=== PATIENT | female | born 1940 | race Caucasian/White ===

== ENCOUNTER 2020-11-04 20:06 | Emergency (ER) | payer OTHER, MEDICAID, SELFPAY ==
[~2020-11-04] VITALS: Ht 167.6 cm; Wt 70.3 kg
[~2020-11-04 20:06] MED LIST: AZIT250T3 PO; CAPS1ADH5 TP; CHOL500040 PO; LORA-476 PO; METO25TA PO; MIRABULK PO; MIRT-92 PO; SENN-73 PO; TRAM50TA1 PO; TRAZ-343 PO
[2020-11-04 20:10] VITALS: BP 157/70
--- NOTE | 2020-11-04 20:19 | NUR ---
Pt biba for 9/10 left shoulder pain x21 years, worsened today. Denies injury or fall. States she did have surgery on left shoulder 21 yr ago. A/Ox4. States she is normally able to walk w/steady gait. Noted w/BLE +2 pitting edema. Hx of HTN, hyperlipidemia, anxiety, and depression.
[2020-11-04] MEDS ORDERED: MORPHINE SULFATE 4 MG/ML SYR IM ONE (20:50)
--- NOTE | 2020-11-04 21:08 | NUR ---
xray at bedside
--- NOTE | 2020-11-04 21:36 | NUR ---
Spoke with Martha at [facility]. States they do not have transportation available to take pt back to SNF. Also spoke with Harinder Patel, pt son. He states he is not able to transport pt back to SNF. Will continue to monitor pt until transportation is available.
[2020-11-04] MEDS ORDERED: ACET-8386 PO (21:46)
[2020-11-04] MEDS ORDERED: IBUP-2213 PO (21:46)
--- NOTE | 2020-11-04 22:16 | NUR ---
Pt resting in bed, breathing even and unlabored. A/Ox4, VSS. Pt states pain is relieved by pain shot. Needs met, will continue to monitor.
--- NOTE | 2020-11-04 22:51 | NUR ---
Taxi ETA 2300. Pt is A/Ox4 with steady gait. Spoke with Martha at [facility] and instructed her on pt d/c information and taxi ETA. Pt aware of transportation plan. Patient discharged with v/s stable. Written and verbal after care instructions given and explained. Patient alert, oriented and verbalized understanding of instructions. Ambulatory with steady gait. All questions addressed prior to discharge. ID band removed. Patient advised to follow up with PMD. Rx of Ibuprofen and Motrin given. Patient educated on indication of medication including possible reaction and side effects. Opportunity to ask questions provided and answered. Pending taxi pickup, ETA 2300.
[2020-11-04 22:54] VITALS: BP 167/68
--- NOTE | 2020-11-04 23:15 | NUR ---
CAB ARRIVED FOR PT.
== END 2020-11-04 23:38 | disposition home or self-care (01) ==
LOC: MED 20:06
DX: G89.29 Other chronic pain (principal); M25.512 Pain in left shoulder; I10 Essential (primary) hypertension; F41.9 Anxiety disorder, unspecified; F32.9 Major depressive disorder, single episode, unspecified; Z98.890 Other specified postprocedural states; Z79.899 Other long term (current) drug therapy
CPT/HCPCS: 73030; 96372; 99283; J2270

== ENCOUNTER 2021-04-24 01:55 | Emergency (ER) | payer OTHER, MEDICAID, SELFPAY ==
[~2021-04-24] VITALS: Ht 170.2 cm; Wt 81.2 kg
[~2021-04-24 01:55] MED LIST changes: +ACET-8386 PO; +IBUP-2213 PO
[2021-04-24 02:03] VITALS: BP 125/68
--- NOTE | 2021-04-24 02:04 | NUR ---
To ED bed 08
--- NOTE | 2021-04-24 02:05 | NUR ---
Dr. Andrea with dayna for MSE
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
[2021-04-24] MEDS ORDERED: ACETAMINOPHEN EXTRA STRENGTH 500 MG TAB PO ONE (02:30)
[2021-04-24 03:09] LABS: BASOPHILS % (AUTO) 0.2 % (0.0-2.0); EOSINOPHILS % (AUTO) 0.4 % (0.0-4.0); HEMATOCRIT 40.2 % (36-48); HEMOGLOBIN 13.3 g/dL (12.0-16.0); LYMPHOCYTES # (AUTO) 0.9 K/uL (2.5-16.5); LYMPHOCYTES % (AUTO) 9.8 % (20.5-51.1); MEAN CORPUSCULAR HEMOGLOBIN 28 pg (27-31); MEAN CORPUSCULAR HGB CONC 33 g/dL (33-37); MEAN CORPUSCULAR VOLUME 84.6 fL (80-94); MONOCYTES # (AUTO) 0.6 K/uL (0.8-1.0); MONOCYTES % (AUTO) 6.3 % (1.7-9.3); PLATELET COUNT (AUTO) 162 K/uL (140-450); RED BLOOD CELL COUNT(AUTO) 4.75 MIL/uL (4.20-5.40); RED CELL DISTRIBUTION WIDTH 14.6 % (11.6-13.7); WHITE BLOOD COUNT (AUTO) 9.6 K/uL (4.8-10.8)
[2021-04-24 03:31] LABS: NEUTROPHILS % (AUTO) 83.3 % (42.2-75.2)
[2021-04-24 03:50] LABS: ALBUMIN 3.7 g/dL (3.4-5.0); ANION GAP 8.6 (8-16); ASPARTATE AMINOTRANSFERASE 21 U/L (15-37); CARBON DIOXIDE 28.4 mmol/L (21-32); CHLORIDE 106 mmol/L (98-107); CREATININE 0.8 mg/dL (0.6-1.3); GLUCOSE 112 mg/dL (74-106); SODIUM SERUM 139 mmol/L (136-145); TOTAL BILIRUBIN 0.4 mg/dL (0.0-1.0); UREA NITROGEN, BLOOD 27 mg/dL (7-18)
--- NOTE | 2021-04-24 05:00 | NUR ---
Patient appears to be resting comfortably in bed. Vital Signs within normal limits. Respirations even and unlabored.
--- NOTE | 2021-04-24 07:19 | NUR ---
GIVEN REPORT TO WILLIAM MCKEON. TRANSFER OF CARE AT THIS TIME.
--- NOTE | 2021-04-24 07:22 | NUR ---
REPORT RECEIVED FROM WILLIAM WALLACE. TRANSFER OF CARE RECEIVED
--- NOTE | 2021-04-24 09:06 | NUR ---
jenn arreola called for pt transport and spoke with regi. ETA is 45 min from now
--- NOTE | 2021-04-24 09:10 | NUR ---
called bryson trammell to give report on pt. no answer at this time
[2021-04-24 10:51] VITALS: BP 183/76
--- NOTE | 2021-04-24 10:51 | NUR ---
Patient discharged with v/s stable. Written and verbal after care instructions given and explained. Patient verbalized understanding. Ambulatory with to [facility]. All questions addressed prior to discharge. Advised to follow up with PMD.
== END 2021-04-24 10:15 ==
LOC: MED 01:55
DX: R19.7 Diarrhea, unspecified (principal); R10.9 Unspecified abdominal pain; I10 Essential (primary) hypertension; Z79.899 Other long term (current) drug therapy
CPT/HCPCS: 36415; 74018; 80053; 85025; 99284; Q0092

== ENCOUNTER 2021-07-30 11:06 | Emergency (ER) | payer OTHER, MEDICAID, SELFPAY ==
[~2021-07-30] VITALS: Ht 157.5 cm; Wt 77.1 kg
[2021-07-30 11:07] VITALS: BP 184/70
--- NOTE | 2021-07-30 11:07 | NUR ---
amr placed pt in bed 9 at this time
[2021-07-30 11:14] VITALS: BP 184/70
--- NOTE | 2021-07-30 11:20 | NUR ---
SPOKE WITH [facility], PER BRAIDED BAND ASSEMBLER NURSE "IS TOO BUSY TO GIVE REPORT" AND UNABLE TO TELL US WHY THEY SENT PATIENT WITH NO COMLAINTS.
--- NOTE | 2021-07-30 11:24 | NUR ---
called bryson trammell at this time for report around 1107. spoke with pedro diaz, rn states she does not know the mental status of the patient before she left, but was informed that the son (lamberto) called to transport because yesterday pt was acting differently from normal baseline per pt roomate. ermd and charge notified at this time
--- NOTE | 2021-07-30 11:27 | NUR ---
DR. STEVE AT PT BEDSIDE FOR FURTHER EVALUATION.
--- NOTE | 2021-07-30 11:32 | NUR ---
PADDING MACHINE OPERATOR AT PT BEDSIDE.
--- NOTE | 2021-07-30 11:41 | NUR ---
AMMONIA DISTILLER AT PT BEDSIDE.
[2021-07-30 12:22] LABS: BASOPHILS % (AUTO) 0.4 % (0.0-2.0); EOSINOPHILS # (AUTO) 0.1 K/uL (0-0.4); EOSINOPHILS % (AUTO) 1.5 % (0.0-4.0); HEMATOCRIT 39.8 % (36-48); HEMOGLOBIN 13.2 g/dL (12.0-16.0); LYMPHOCYTES # (AUTO) 1.7 K/uL (2.5-16.5); LYMPHOCYTES % (AUTO) 26.1 % (20.5-51.1); MEAN CORPUSCULAR HEMOGLOBIN 28 pg (27-31); MEAN CORPUSCULAR HGB CONC 33 g/dL (33-37); MEAN CORPUSCULAR VOLUME 85.3 fL (80-94); MONOCYTES # (AUTO) 0.6 K/uL (0.8-1.0); MONOCYTES % (AUTO) 8.9 % (1.7-9.3); NEUTROPHILS # (AUTO) 4.1 K/uL (1.8-7.7); NEUTROPHILS % (AUTO) 63.1 % (42.2-75.2); PLATELET COUNT (AUTO) 170 K/uL (140-450); RED BLOOD CELL COUNT(AUTO) 4.66 MIL/uL (4.20-5.40); RED CELL DISTRIBUTION WIDTH 14.8 % (11.6-13.7); WHITE BLOOD COUNT (AUTO) 6.5 K/uL (4.8-10.8)
[2021-07-30 12:27] LABS: ALBUMIN 3.9 g/dL (3.4-5.0); ANION GAP 14.2 (8-16); ASPARTATE AMINOTRANSFERASE 25 U/L (15-37); CARBON DIOXIDE 27.4 mmol/L (21-32); CHLORIDE 104 mmol/L (98-107); CREATININE 0.9 mg/dL (0.6-1.3); GLUCOSE 89 mg/dL (74-106); POTASSIUM 4.6 mmol/L (3.5-5.1); SODIUM SERUM 141 mmol/L (136-145); TOTAL BILIRUBIN 0.4 mg/dL (0.0-1.0); UREA NITROGEN, BLOOD 26 mg/dL (7-18)
[2021-07-30 13:05] LABS: APPEARANCE,URINE CLEAR (CLEAR); BILIRUBIN,URINE NEGATIVE (NEGATIVE); BLOOD, URINE 3+ (NEGATIVE); COLOR,URINE YELLOW (YELLOW); LEUKOCYTE ESTERASE ,URINE TRACE (NEGATIVE); NITRITE, URINE NEGATIVE (NEGATIVE); UGLUCOSE NEGATIVE (NEGATIVE)
--- NOTE | 2021-07-30 13:11 | NUR ---
PT RESTING IN BED, VSS, WILL CONTINUE TO MONITOR.
[2021-07-30 13:14] LABS: WBC,URINE 0-5 /HPF (0-5)
[2021-07-30 13:40] LABS: APPEARANCE,URINE CLEAR (CLEAR); BILIRUBIN,URINE NEGATIVE (NEGATIVE); BLOOD, URINE TRACE-L (NEGATIVE); LEUKOCYTE ESTERASE ,URINE NEGATIVE (NEGATIVE); NITRITE, URINE NEGATIVE (NEGATIVE); UGLUCOSE NEGATIVE (NEGATIVE)
[2021-07-30] MEDS ORDERED: NITR100C7 PO (14:05)
--- NOTE | 2021-07-30 14:11 | NUR ---
CALLED [facility] MART[facility] AND SPOKE TO THE DESK AND WOODEN FURNITURE POLISHER GOES HOME AT 2PM. NO OTHER TRANSPORTATION SERVICES AVAILABLE. CALLED AND SPOKE TO SON LUIS E AND HE IS NOT ABLE TO PICK HER UP. HE WAS UPDATED ON HER CARE AND DX.
[2021-07-30 14:15] LABS: COLOR,URINE YELLOW (YELLOW); RBC,URINE 0 /HPF (0-5); WBC,URINE 0-5 /HPF (0-5)
--- NOTE | 2021-07-30 14:15 | NUR ---
[facility]XI ARRANGED FOR PATIENT. ETA 5-45 MINS.
--- NOTE | 2021-07-30 15:55 | NUR ---
CALLED AND FOLLOW UP WITH [facility], NO AVAILABLE HIDE BUFFER. CAB SERVICE ASKED FOR US TO CALL BACK IN 15 MINS.
[2021-07-30 16:09] VITALS: BP 147/60
--- NOTE | 2021-07-30 16:09 | NUR ---
Patient discharged with v/s stable. Written and verbal after care instructions given and explained. Patient verbalized understanding. Ambulatory with steady gait. All questions addressed prior to discharge. Advised to follow up with PMD. PT GIVEN TRAVEL VOUCHER FOR TAXI RIDE HOME. EMT WALKED PT TO TAXI. PT HAS STEADY GAIT, CALM DEMEANOR, AND UNLABORED BREATHING W/ EQUAL CHEST RISE/FALL.
== END 2021-07-30 16:09 | disposition home or self-care (01) ==
LOC: MED 11:06
DX: N39.0 Urinary tract infection, site not specified (principal); R41.0 Disorientation, unspecified; F03.90 Unspecified dementia, unspecified severity, without behavioral disturbance, psychotic disturbance, mood disturbance, and anxiety; I10 Essential (primary) hypertension; Z79.899 Other long term (current) drug therapy
CPT/HCPCS: 36415; 71045; 80053; 81001; 84484; 85025; 87086; 93005; 99285; Q0092

== ENCOUNTER 2021-10-02 21:46 | Emergency (ER) | payer OTHER, MEDICAID ==
[~2021-10-02] VITALS: Ht 167.6 cm; Wt 68.0 kg
[~2021-10-02 21:46] MED LIST changes: +NITR100C7 PO
--- NOTE | 2021-10-02 21:54 | NUR ---
JENELLE ESCOBAR TAKEN TO BED #5
[2021-10-02 21:55] VITALS: BP 157/78
--- NOTE | 2021-10-02 22:15 | NUR ---
COVID-19 swabs collected and sent to lab.
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
[2021-10-02] MEDS ORDERED: lovaza GT/PO (22:17)
[2021-10-02] MEDS ORDERED: CRAN425C8 PO (22:17)
[2021-10-02] MEDS ORDERED: CARB15DR61 OT (22:17)
[2021-10-02] MEDS ORDERED: ACET-2619 PO (22:17)
[2021-10-02] MEDS ORDERED: MELA1TAB32 PO (22:17)
[2021-10-02] MEDS ORDERED: TROL85CR TP (22:17)
--- NOTE | 2021-10-02 22:31 | NUR ---
Dr. Parrish at bedside to exam patient.
--- NOTE | 2021-10-02 23:12 | NUR ---
Blood for labwork drawn from right arm per patch finisher. Patient tolerated well.
--- NOTE | 2021-10-02 23:24 | NUR ---
Assisted patient to restroom
[2021-10-02 23:26] LABS: APPEARANCE,URINE CLEAR (CLEAR); BILIRUBIN,URINE NEGATIVE (NEGATIVE); BLOOD, URINE TRACE-I (NEGATIVE); COLOR,URINE YELLOW (YELLOW); LEUKOCYTE ESTERASE ,URINE 1+ (NEGATIVE); NITRITE, URINE NEGATIVE (NEGATIVE); UGLUCOSE NEGATIVE (NEGATIVE)
[2021-10-02 23:28] LABS: BASOPHILS % (AUTO) 0.9 % (0.0-2.0); EOSINOPHILS # (AUTO) 0.1 K/uL (0-0.4); EOSINOPHILS % (AUTO) 2.4 % (0.0-4.0); HEMATOCRIT 37.3 % (36-48); HEMOGLOBIN 12.5 g/dL (12.0-16.0); LYMPHOCYTES # (AUTO) 1.9 K/uL (2.5-16.5); LYMPHOCYTES % (AUTO) 34.2 % (20.5-51.1); MEAN CORPUSCULAR HEMOGLOBIN 28 pg (27-31); MEAN CORPUSCULAR HGB CONC 34 g/dL (33-37); MEAN CORPUSCULAR VOLUME 83.9 fL (80-94); MONOCYTES # (AUTO) 0.4 K/uL (0.8-1.0); MONOCYTES % (AUTO) 7.8 % (1.7-9.3); NEUTROPHILS % (AUTO) 54.7 % (42.2-75.2); PLATELET COUNT (AUTO) 167 K/uL (140-450); RED BLOOD CELL COUNT(AUTO) 4.45 MIL/uL (4.20-5.40); RED CELL DISTRIBUTION WIDTH 14.7 % (11.6-13.7); WHITE BLOOD COUNT (AUTO) 5.5 K/uL (4.8-10.8)
[2021-10-02 23:50] LABS: RBC,URINE 0-5 /HPF (0-5)
[2021-10-03 00:11] LABS: ALBUMIN 3.5 g/dL (3.4-5.0); ANION GAP 13.5 (8-16); ASPARTATE AMINOTRANSFERASE 17 U/L (15-37); CARBON DIOXIDE 27.2 mmol/L (21-32); CHLORIDE 99 mmol/L (98-107); CREATININE 0.8 mg/dL (0.6-1.3); GLUCOSE 95 mg/dL (74-106); POTASSIUM 3.7 mmol/L (3.5-5.1); SODIUM SERUM 136 mmol/L (136-145); TOTAL BILIRUBIN 0.4 mg/dL (0.0-1.0); UREA NITROGEN, BLOOD 19 mg/dL (7-18)
[2021-10-03] MEDS ORDERED: cephALEXin 500 MG CAP PO ONE (00:15)
[2021-10-03] MEDS ORDERED: CEPH-588 PO (00:44)
[2021-10-03 00:57] VITALS: BP 156/71
--- NOTE | 2021-10-03 00:57 | NUR ---
Patient discharged with v/s stable. Written and verbal after care instructions given and explained. Patient alert, oriented and verbalized understanding of instructions. Wheel Chair Assisted with to retirement. All questions addressed prior to discharge. ID band removed. Patient advised to follow up with PMD. Rx of Keflex given. Patient educated on indication of medication including possible reaction and side effects. Opportunity to ask questions provided and answered.
== END 2021-10-03 00:57 | disposition home or self-care (01) ==
LOC: MED 21:46
DX: N39.0 Urinary tract infection, site not specified (principal); Z20.822 Contact with and (suspected) exposure to COVID-19; I10 Essential (primary) hypertension; F03.90 Unspecified dementia, unspecified severity, without behavioral disturbance, psychotic disturbance, mood disturbance, and anxiety; Z79.899 Other long term (current) drug therapy
CPT/HCPCS: 36415; 80053; 81001; 84484; 85025; 87086; 93005; 99284

== ENCOUNTER 2021-12-27 14:00 | Emergency (ER) | payer OTHER, MEDICAID ==
[~2021-12-27] VITALS: Ht 167.6 cm; Wt 65.8 kg
[2021-12-27 14:00] VITALS: BP 154/65
[~2021-12-27 14:00] MED LIST changes: +ACET-2619 PO; -ACET-8386 PO; -AZIT250T3 PO; +CARB15DR61 OT; +CEPH-588 PO; +CRAN425C8 PO; -IBUP-2213 PO; -LORA-476 PO; +MELA1TAB32 PO; -MIRABULK PO; -NITR100C7 PO; -TRAM50TA1 PO; +TROL85CR TP; +lovaza GT/PO
--- NOTE | 2021-12-27 14:11 | NUR ---
PT UNABLE TO PROVIDE URINE AT THIS TIME, CUP OF WATER GIVEN
[2021-12-27] MEDS ORDERED: cephALEXin 500 MG CAP PO ONE (15:50)
[2021-12-27] MEDS ORDERED: CEPH-588 PO (15:51)
[2021-12-27 16:34] VITALS: BP 154/65
[2021-12-27 22:29] LABS: APPEARANCE,URINE CLEAR (CLEAR); BILIRUBIN,URINE NEGATIVE (NEGATIVE); BLOOD, URINE NEGATIVE (NEGATIVE); COLOR,URINE YELLOW (YELLOW); LEUKOCYTE ESTERASE ,URINE 1+ (NEGATIVE); NITRITE, URINE NEGATIVE (NEGATIVE); UGLUCOSE NEGATIVE (NEGATIVE)
[2021-12-27 22:39] LABS: RBC,URINE 0-5 /HPF (0-5); WBC,URINE 0-5 /HPF (0-5)
== END 2021-12-27 16:34 | disposition home or self-care (01) ==
LOC: MED 14:00
DX: N39.0 Urinary tract infection, site not specified (principal); I10 Essential (primary) hypertension; F03.90 Unspecified dementia, unspecified severity, without behavioral disturbance, psychotic disturbance, mood disturbance, and anxiety; Z79.2 Long term (current) use of antibiotics; Z79.899 Other long term (current) drug therapy
CPT/HCPCS: 81001; 87086; 99283

== ENCOUNTER 2022-01-04 01:45 | Inpatient (IN) | payer OTHER, MEDICAID ==
[~2022-01-04] VITALS: Ht 167.6 cm; Wt 70.3 kg
[2022-01-04 01:45] VITALS: BP 143/70
--- NOTE | 2022-01-04 01:46 | NUR ---
BIBA TAKEN TO BED #4
[2022-01-04] MEDS ORDERED: IBUPROFEN 600 MG TAB PO ONE (02:05)
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
--- NOTE | 2022-01-04 02:28 | NUR ---
XRAY AT BEDSIDE
[2022-01-04] MEDS ORDERED: PROPOFOL 200 MG/20 ML VIAL IV ONE (03:00)
--- NOTE | 2022-01-04 03:14 | NUR ---
22G IV CATH PLACED RIGHT AC.
[2022-01-04] MEDS ORDERED: NACL 0.9% 1,000 ML IV ONE (03:30)
--- NOTE | 2022-01-04 04:47 | NUR ---
PT IS RESTING WITH SIDE RAILS UP X2. RESP EVEN AND UNLABORED.
--- NOTE | 2022-01-04 08:17 | NUR ---
Patient will be admitted to care of . Admited to MED SURG. Will go to [id number]. Belongings list completed. Report to WILLIAM AKBAR.
[2022-01-04 10:48] VITALS: BP 154/87
--- NOTE | 2022-01-04 11:35 | NUR ---
PATIENT DISCHARGE , DISCHARGE INSTRUCTION GIVEN, IV AND ID BAND REMOVED. ESCORTED BY W\C WITH NURSE.[id number]
== END 2022-01-04 14:55 | disposition home or self-care (01) | DRG 563 ==
LOC: MED 01:45 → MTU 05:01 → MMU 05:01 → MTU 05:55
PROVIDERS: ADMIT Student in an Organized Health Care Education/Training Program; ATTEND Student in an Organized Health Care Education/Training Program
PROC: 0XJ3XZZ Inspection of Left Shoulder Region, External Approach (ICD-10-PCS; principal; 2022-01-04)
DX: S43.015A Anterior dislocation of left humerus, initial encounter (principal); Z20.822 Contact with and (suspected) exposure to COVID-19; M19.012 Primary osteoarthritis, left shoulder; I10 Essential (primary) hypertension; F03.90 Unspecified dementia, unspecified severity, without behavioral disturbance, psychotic disturbance, mood disturbance, and anxiety; W18.39XA Other fall on same level, initial encounter; Y93.89 Activity, other specified; Y92.128 Other place in nursing home as the place of occurrence of the external cause; Z79.899 Other long term (current) drug therapy; Y99.8 Other external cause status
CPT/HCPCS: 23650; 73020; 73030; 73200; 96360; 99285; G0500; J2704; J7030; Q0092

== ENCOUNTER 2022-02-14 22:36 | Emergency (ER) | payer OTHER, MEDICAID ==
[~2022-02-14] VITALS: Ht 167.6 cm; Wt 63.5 kg
[2022-02-14 22:36] VITALS: BP 147/74
[~2022-02-14 22:36] MED LIST changes: -CAPS1ADH5 TP; -CARB15DR61 OT; -CEPH-588 PO; -TROL85CR TP; -lovaza GT/PO
--- NOTE | 2022-02-14 22:36 | NUR ---
JENELLE FROM [facility] WITH C/O LOWER BACK PAIN 02/27, ALERT, AMBULATORY WITH WALKER
--- NOTE | 2022-02-14 23:00 | NUR ---
PT AMBULATE WITH WALKER TO RESTROOM.
[2022-02-15] MEDS ORDERED: HYDROcodone/APAP 7.5/325 MG 1 TAB PO ONE (01:00)
--- NOTE | 2022-02-15 01:13 | NUR ---
81 YO F BIBA FOR CHRONIC BACK PAIN. PT STATES PAIN 9/10 AND PAIN BECAME SO BAD SHE NEEDED ER . RADIATES TO LUMBAR BACK AREA. PT IS AMBULATORY WITH WALKER. PT IS A POOR HISTORIAN. HAS A HX OF DEPRESSION AND ANXIETY. PT IS A&OX4.
--- NOTE | 2022-02-15 02:54 | NUR ---
PT LEFT TO CT
--- NOTE | 2022-02-15 03:15 | NUR ---
PT BACK FROM CT
--- NOTE | 2022-02-15 03:52 | NUR ---
PROVIDED PT ALESHIA AND JNE
--- NOTE | 2022-02-15 04:36 | NUR ---
Patient appears to be resting comfortably in bed. Vital Signs within normal limits. Respirations even and unlabored.
[2022-02-15] MEDS ORDERED: IBUP-2213 PO (05:56)
[2022-02-15] MEDS ORDERED: ACETAMINOPHEN 325 MG TAB PO ONE (07:25)
[2022-02-15] MEDS ORDERED: ACETAMINOPHEN 325 MG TAB ONE (07:27)
--- NOTE | 2022-02-15 07:29 | NUR ---
pt given tylenol 325 mg per FOR BACK PAIN . PT BEING D/C TO [facility] AT 0800
[2022-02-15 08:03] VITALS: BP 170/74
== END 2022-02-15 08:03 ==
LOC: MED 22:36
DX: S32.020A Wedge compression fracture of second lumbar vertebra, initial encounter for closed fracture (principal); F03.90 Unspecified dementia, unspecified severity, without behavioral disturbance, psychotic disturbance, mood disturbance, and anxiety; I10 Essential (primary) hypertension; X58.XXXA Exposure to other specified factors, initial encounter; Y93.89 Activity, other specified; Y92.89 Other specified places as the place of occurrence of the external cause; Y99.8 Other external cause status
CPT/HCPCS: 72131; 99285

== ENCOUNTER 2022-03-05 00:08 | Emergency (ER) | payer OTHER, MEDICAID ==
[~2022-03-05] VITALS: Ht 167.6 cm; Wt 65.3 kg
[2022-03-05 00:08] VITALS: BP 110/58
[~2022-03-05 00:08] MED LIST changes: +IBUP-2213 PO
--- NOTE | 2022-03-05 00:08 | NUR ---
JENELLE ESCOBAR TAKEN TO BED #4
--- NOTE | 2022-03-05 00:17 | NUR ---
PT PLACED ON MONITOR
[2022-03-05 00:54] LABS: APPEARANCE,URINE CLOUDY (CLEAR); BILIRUBIN,URINE NEGATIVE (NEGATIVE); BLOOD, URINE NEGATIVE (NEGATIVE); COLOR,URINE RED (YELLOW); LEUKOCYTE ESTERASE ,URINE NEGATIVE (NEGATIVE); NITRITE, URINE NEGATIVE (NEGATIVE); UGLUCOSE NEGATIVE (NEGATIVE)
[2022-03-05] MEDS ORDERED: KETOROLAC 60 MG/2 ML VIAL IM ONE (01:55)
--- NOTE | 2022-03-05 02:00 | NUR ---
82 YO F JENELLE FROM [facility] C/O LOW BACK PAIN X 6 HOURS. TOOK TYLENOL WITH NO RELIF NKDA PMH: CHRONIC BACK PAIN, HTN
[2022-03-05] MEDS ORDERED: ACET-8386 PO ×2 (02:44→02:45)
[2022-03-05] MEDS ORDERED: IBUP-2213 PO (02:44)
[2022-03-05 03:25] VITALS: BP 115/60
--- NOTE | 2022-03-05 03:28 | NUR ---
Patient discharged with v/s stable. Written and verbal after care instructions given and explained. Patient alert, oriented and verbalized understanding of instructions. Wheel Chair Assisted with to car. All questions addressed prior to discharge. ID band removed. Patient advised to follow up with PMD. Rx of NORCO 5/325 & IBUPROFEN given. Patient educated on indication of medication including possible reaction and side effects. Opportunity to ask questions provided and answered.
[2022-03-06] MEDS ORDERED: ACET-9527 PO (08:56)
[2022-03-06] MEDS ORDERED: LID5T TP (08:58)
[2022-03-06] MEDS ORDERED: ACET-10509 PO (08:58)
[2022-03-06] MEDS ORDERED: ACET-8386 PO (08:58)
== END 2022-03-05 03:28 | disposition home or self-care (01) ==
LOC: MED 00:08
DX: M54.50 Low back pain, unspecified (principal); I10 Essential (primary) hypertension; F03.90 Unspecified dementia, unspecified severity, without behavioral disturbance, psychotic disturbance, mood disturbance, and anxiety; Z79.899 Other long term (current) drug therapy; Z79.1 Long term (current) use of non-steroidal anti-inflammatories (NSAID)
CPT/HCPCS: 81003; 96372; 99283; J1885

== ENCOUNTER 2022-03-06 06:32 | Emergency (ER) | payer OTHER, MEDICAID ==
[~2022-03-06] VITALS: Ht 165.1 cm; Wt 68.0 kg
[2022-03-06 06:32] VITALS: BP 156/60
[~2022-03-06 06:32] MED LIST changes: +ACET-8386 PO
--- NOTE | 2022-03-06 06:34 | NUR ---
PT BIBA BLS STATUS POST FALL
--- NOTE | 2022-03-06 06:36 | NUR ---
PT TO BED 9 AT THIS TIME
[2022-03-06] MEDS ORDERED: HYDROcodone/APAP 5/325 MG 1 TAB TAB PO ONE (07:40)
--- NOTE | 2022-03-06 07:53 | NUR ---
PT [facility]
[2022-03-06] MEDS ORDERED: ACET-9527 PO (08:56)
[2022-03-06] MEDS ORDERED: ACET-8386 PO (08:58)
[2022-03-06] MEDS ORDERED: LID5T TP (08:58)
[2022-03-06] MEDS ORDERED: ACET-10509 PO (08:58)
[2022-03-06 09:31] VITALS: BP 142/81
--- NOTE | 2022-03-06 09:31 | NUR ---
Patient discharged with v/s stable. Written and verbal after care instructions given and explained. Patient alert, oriented and verbalized understanding of instructions. Ambulatory with steady gait. All questions addressed prior to discharge. ID band removed. Patient advised to follow up with PMD. Rx of ACETAMINOPHEN HYDROCODON LIDODERM given. Patient educated on indication of medication including possible reaction and side effects. Opportunity to ask questions provided and answered.
== END 2022-03-06 09:31 | disposition home or self-care (01) ==
LOC: MED 06:32
DX: S39.012A Strain of muscle, fascia and tendon of lower back, initial encounter (principal); I10 Essential (primary) hypertension; F03.90 Unspecified dementia, unspecified severity, without behavioral disturbance, psychotic disturbance, mood disturbance, and anxiety; X58.XXXA Exposure to other specified factors, initial encounter; Y93.89 Activity, other specified; Y92.89 Other specified places as the place of occurrence of the external cause; Y99.8 Other external cause status
CPT/HCPCS: 72100; 99283

== ENCOUNTER 2022-03-24 19:37 | Inpatient (IN) | payer OTHER, MEDICAID ==
[~2022-03-24] VITALS: Ht 165.1 cm; Wt 71.7 kg
[~2022-03-24 19:37] MED LIST changes: +ACET-10509 PO; +LID5T TP
[2022-03-24 19:40] VITALS: BP 172/78
--- NOTE | 2022-03-24 19:42 | NUR ---
BIBA TAKEN TO BED #8
--- NOTE | 2022-03-24 20:04 | NUR ---
82 Y/O F FROM [facility]. BIBA FOR BILAT LEG SWELLING FROM LOWER THIGH TO FEET + 1 PITTING EDEMA. SINCE THIS MORNING. PT REPORTS DULL CONTNOUS 6/10 PAIN . PT HAS SLIGHT NON ELEVATED RASH D/T SWELLING. PT DENIES N/F/V/D/CHEST PAIN/ COUGH. PT IS AMBULATORY WITH WALKER A&0 X4 . PT HAS NO WOUNDS AND USES THE RESTROOM ON HER OWN. VSS; PATIENT POSITIONED FOR COMFORT; HOB ELEVATED; BEDRAILS UP X2; BED DOWN. ER MD MADE AWARE OF PT STATUS. PMH: HTN, HYPONATREMIA RX: SEE MED REC
--- NOTE | 2022-03-24 20:04 | NUR ---
ERMD EXAMINING PT
[2022-03-24 20:43] LABS: BASOPHILS % (AUTO) 0.3 % (0.0-2.0); EOSINOPHILS # (AUTO) 0.1 K/uL (0-0.4); EOSINOPHILS % (AUTO) 1.2 % (0.0-4.0); HEMATOCRIT 36.9 % (36-48); HEMOGLOBIN 12.1 g/dL (12.0-16.0); LYMPHOCYTES # (AUTO) 2.7 K/uL (2.5-16.5); LYMPHOCYTES % (AUTO) 29.4 % (20.5-51.1); MEAN CORPUSCULAR HEMOGLOBIN 28 pg (27-31); MEAN CORPUSCULAR HGB CONC 33 g/dL (33-37); MEAN CORPUSCULAR VOLUME 85.4 fL (80-94); MONOCYTES # (AUTO) 0.7 K/uL (0.8-1.0); MONOCYTES % (AUTO) 7.8 % (1.7-9.3); NEUTROPHILS # (AUTO) 5.6 K/uL (1.8-7.7); NEUTROPHILS % (AUTO) 61.3 % (42.2-75.2); PLATELET COUNT (AUTO) 205 K/uL (140-450); RED BLOOD CELL COUNT(AUTO) 4.32 MIL/uL (4.20-5.40); RED CELL DISTRIBUTION WIDTH 15.8 % (11.6-13.7); WHITE BLOOD COUNT (AUTO) 9.2 K/uL (4.8-10.8)
--- NOTE | 2022-03-24 20:45 | NUR ---
X-Ray at bedside.
[2022-03-24 20:56] LABS: ALBUMIN 3.2 g/dL (3.4-5.0); ANION GAP 12.8 (8-16); ASPARTATE AMINOTRANSFERASE 16 U/L (15-37); CARBON DIOXIDE 26.5 mmol/L (21-32); CHLORIDE 104 mmol/L (98-107); CREATININE 0.8 mg/dL (0.6-1.3); GLUCOSE 97 mg/dL (74-106); POTASSIUM 4.3 mmol/L (3.5-5.1); SODIUM SERUM 139 mmol/L (136-145); TOTAL BILIRUBIN 0.4 mg/dL (0.0-1.0); UREA NITROGEN, BLOOD 25 mg/dL (7-18)
[2022-03-24] MEDS ORDERED: DILTIAZEM 25 MG/5 ML VIAL IVP ONE (21:40)
[2022-03-24] MEDS ORDERED: FUROSEMIDE 40 MG/4 ML VIAL IVP ONE (21:40)
--- NOTE | 2022-03-24 21:44 | NUR ---
PT AMBULATE TO BATHROOM
--- NOTE | 2022-03-24 22:45 | NUR ---
PT AMBULATE TO BATHROOM
--- NOTE | 2022-03-24 22:51 | NUR ---
PT STATES SHES HUNGRY. PROVIDED PT ALESHIA ANS JUICE . PT SITING AT BEDSIDE EATING
--- NOTE | 2022-03-24 23:14 | NUR ---
COVID SWAB TAKEN TO LAB
--- NOTE | 2022-03-25 00:30 | NUR ---
PT C/O 05/[address] BACK [address]IN. CALLED ADMIT DR FOR PAIN MED. DR GAVE MORPHINE IV PUSH. AMBULATE TO BATHROOM
[2022-03-25] MEDS ORDERED: MORPHINE SULFATE 4 MG/ML SYR IVP PRN (00:50)
--- NOTE | 2022-03-25 01:20 | NUR ---
MORPHINE GIVEN BY WILLIAM ROE. PT FOUND RELIEF WITH MORPHINE. PROVIDED ADDITIONAL PILLOW FOR COMFORT
[2022-03-25] MEDS ORDERED: CALC-1236 PO (03:49)
[2022-03-25] MEDS ORDERED: ATOR10TA PO (04:07)
--- NOTE | 2022-03-25 07:20 | NUR ---
REPORT RECEIVED FROM ISAC MCCLELLAND. ASSUMED CARE AT THIS TIME
--- NOTE | 2022-03-25 07:30 | NUR ---
PT AT REST , LAYING SUPINE POSITION. NO VISIBLE DISTRESS. RESPIRATIONS EVEN AND UNLABORED. PT ON REGISTERED NURSE HH CASE MANAGER. DENIES PAIN AT THIS TIME
[2022-03-25 07:50] LABS: BASOPHILS % (AUTO) 0.2 % (0.0-2.0); EOSINOPHILS # (AUTO) 0.1 K/uL (0-0.4); EOSINOPHILS % (AUTO) 1.3 % (0.0-4.0); HEMATOCRIT 41.4 % (36-48); HEMOGLOBIN 13.4 g/dL (12.0-16.0); LYMPHOCYTES # (AUTO) 2.8 K/uL (2.5-16.5); LYMPHOCYTES % (AUTO) 28.4 % (20.5-51.1); MEAN CORPUSCULAR HEMOGLOBIN 28 pg (27-31); MEAN CORPUSCULAR HGB CONC 32 g/dL (33-37); MEAN CORPUSCULAR VOLUME 86.7 fL (80-94); MONOCYTES # (AUTO) 1.1 K/uL (0.8-1.0); MONOCYTES % (AUTO) 10.9 % (1.7-9.3); NEUTROPHILS # (AUTO) 5.8 K/uL (1.8-7.7); NEUTROPHILS % (AUTO) 59.2 % (42.2-75.2); PLATELET COUNT (AUTO) 206 K/uL (140-450); RED BLOOD CELL COUNT(AUTO) 4.77 MIL/uL (4.20-5.40); RED CELL DISTRIBUTION WIDTH 16.1 % (11.6-13.7); WHITE BLOOD COUNT (AUTO) 9.8 K/uL (4.8-10.8)
--- NOTE | 2022-03-25 07:55 | NUR ---
Patient will be admitted to care of MD CARDONA . Admited to ICU . Will go to room 3. Belongings list completed. Report to MILAN THOMAS. ALL QUESTIONS ANSWERED
[2022-03-25 08:10] VITALS: BP 135/60
--- NOTE | 2022-03-25 08:10 | NUR ---
Recieved report at bedside by ED nurse, SBAR completed. Patient is on gurney on satellite project site monitor. Patient appears comfortable and VS stable.
--- NOTE | 2022-03-25 08:30 | NUR ---
patient Alert and oriented, A fib controlled, Blood pressure normotensive, Pitting edema bilateral lower extremites, VS stable, Admissions history and assessment completed, skin is intact.
--- NOTE | 2022-03-25 09:25 | NUR ---
PATIENT HAS BEEN SCREENED AND CATEGORIZED HIGH NUTRITION RISK. PATIENT WILL BE SEEN WITHIN 1-2 DAYS OF ADMISSION. [address] FENG [address] Addendum: 03/25/22 at [address] CORRECTION PATIENT HAS BEEN SCREENED AND CATEGORIZED MODERATE NUTRITION RISK. PATIENT WILL BE SEEN WITHIN 3-5 DAYS OF ADMISSION. REFERRAL RECEIVED NOT APPLICABLE CONSTANTINO FENG RD
[2022-03-25 09:58] LABS: CARBON DIOXIDE 26.1 mmol/L (21-32); CHLORIDE 102 mmol/L (98-107); CREATININE 0.8 mg/dL (0.6-1.3); GLUCOSE 85 mg/dL (74-106); POTASSIUM 4.1 mmol/L (3.5-5.1); SODIUM SERUM 137 mmol/L (136-145); UREA NITROGEN, BLOOD 21 mg/dL (7-18)
[2022-03-25] MEDS ORDERED: METOPROLOL 25 MG TAB PO SCH ×2 (10:30→21:00)
[2022-03-25] MEDS ORDERED: ONDANSETRON 4 MG/2 ML VIAL IVP PRN (10:35)
[2022-03-25] MEDS ORDERED: ZOLPIDEM 10 MG TAB PO PRN (10:35)
[2022-03-25] MEDS ORDERED: ACETAMINOPHEN 325 MG TAB PO PRN (10:35)
[2022-03-25] MEDS ORDERED: MORPHINE SULFATE 2 MG/ML SYR IVP PRN (10:35)
[2022-03-25] MEDS ORDERED: POTASSIUM CHLORIDE 10 MEQ TABER PO PRN (10:35)
[2022-03-25] MEDS ORDERED: MAG SULF 2000 MG/WATER PREMIX 50 ML IV PRN (11:00)
[2022-03-25 12:04] VITALS: BP 167/71
--- NOTE | 2022-03-25 13:16 | NUR ---
no wounds noted
[2022-03-25] MEDS: ACETAMINOPHEN 325 MG TAB PO PRN (14:59)
[2022-03-25] MEDS: HYDROcodone/APAP 5/325 MG 1 TAB TAB PO PRN (15:25)
[2022-03-25 16:02] VITALS: BP 140/69
--- NOTE | 2022-03-25 17:00 | NUR ---
RECEIVED PATIENT FROM ICU NURSE FOR CONTINUITY OF CARE. PT IS STABLE.
[2022-03-25] MEDS ORDERED: FUROSEMIDE 40 MG/4 ML VIAL IVP SCH (18:15)
--- NOTE | 2022-03-25 18:30 | NUR ---
ALL SCHEDULED MEDS GIVEN. NO DISTRESS NOTED. WILL CONTINUE TO MONITOR.
--- NOTE | 2022-03-25 19:43 | NUR ---
ENDORSED TO ASSURANCE ANALYST NURSE FOR CONTINUITY OF CARE. PT IS STABLE.
--- NOTE | 2022-03-25 19:45 | NUR ---
RECEIVED REPORT FROM DAY SHIFT NURSE FOR CONTINUITY OF CARE. PT AWAKE, ALERT AND ORIENTED X 2. ON ROOM AIR, BREATHING EQUAL AND UNLABORED. NO DISTRESS NOTED. SKIN WARM, DRY AND INTACT. IV ON L HAND G22, SL. NOTCH MACHINE OPERATOR AT BEDSIDE. NO COMPLAINS OF PAIN. ALL PRECAUTION IN PLACE. CALL LIGHT WITHIN REACH.WILL CONTINUE TO MONITOR.
[2022-03-25 20:00] VITALS: BP 150/84
[2022-03-25] MEDS: METOPROLOL 50 MG TAB PO SCH (20:51)
[2022-03-25] MEDS: MIRTAZAPINE 15 MG TAB PO SCH (20:51)
[2022-03-25] MEDS: traZODone 50 MG TAB PO SCH (20:52)
[2022-03-25] MEDS: APIXABAN 2.5 MG TAB PO SCH (21:00)
--- NOTE | 2022-03-25 21:30 | NUR ---
SCHEDULED MEDICATION GIVEN. PT TOLERATED WELL. WILL CONTINUE TO MONITOR.
--- NOTE | 2022-03-25 22:00 | NUR ---
STARTED NEW IV ON R HAND G22.
[2022-03-26] VITALS: BP 132/80
[2022-03-26] MEDS: HYDROcodone/APAP 5/325 MG 1 TAB TAB PO PRN ×3 (00:57→18:01)
--- NOTE | 2022-03-26 01:00 | NUR ---
PT ASLEEP. BREATHING EQUAL AND UNLABORED, NO DISTRESS NOTED. WILL CONTINUE TO MONITOR.
[2022-03-26 04:00] VITALS: BP 145/78
[2022-03-26] MEDS: METOPROLOL 50 MG TAB PO SCH ×3 (04:41→20:46)
--- NOTE | 2022-03-26 05:00 | NUR ---
SCHEDULED MEDICATION GIVEN. PT TOLERATED WELL. WILL CONTINUE TO MONITOR.
--- NOTE | 2022-03-26 06:21 | NUR ---
PT ASLEEP. BREATHING EQUAL AND UNLABORED, NO DISTRESS NOTED. WILL CONTINUE TO MONITOR.
--- NOTE | 2022-03-26 07:05 | NUR ---
RECEIVED REPORT FROM RETAIL EVENT COORDINATOR NURSE FOR CONTINUITY OF CARE. PT SITTING IN CHAIR, AT BEDSIDE. RESPIRATIONS EVEN AND UNLABORED ON RA. NO DISTRESS NOTED. A&O2, FORGETFULL, ABLE TO COMMUNICATE NEEDS. PT ON TELE MONITOR. SKIN IS INTACT, WARM AND DRY TO TOUCH. IV SITE AT RIGHT HAND, G22, SL. CALL LIGHT WITHIN REACH. SAFETY PRECAUTIONS IN PLACE. WILL CONTINUE TO MONITOR.
[2022-03-26 07:25] LABS: ANION GAP 9.4 (8-16); CARBON DIOXIDE 30.7 mmol/L (21-32); CHLORIDE 99 mmol/L (98-107); CREATININE 0.8 mg/dL (0.6-1.3); GLUCOSE 94 mg/dL (74-106); POTASSIUM 4.1 mmol/L (3.5-5.1); SODIUM SERUM 135 mmol/L (136-145); UREA NITROGEN, BLOOD 18 mg/dL (7-18)
[2022-03-26 07:31] LABS: BASOPHILS % (AUTO) 0.2 % (0.0-2.0); EOSINOPHILS # (AUTO) 0.2 K/uL (0-0.4); EOSINOPHILS % (AUTO) 1.6 % (0.0-4.0); HEMATOCRIT 38.4 % (36-48); HEMOGLOBIN 12.7 g/dL (12.0-16.0); MEAN CORPUSCULAR HEMOGLOBIN 28 pg (27-31); MEAN CORPUSCULAR HGB CONC 33 g/dL (33-37); MEAN CORPUSCULAR VOLUME 84.8 fL (80-94); MONOCYTES % (AUTO) 10.1 % (1.7-9.3); NEUTROPHILS # (AUTO) 5.8 K/uL (1.8-7.7); NEUTROPHILS % (AUTO) 58.1 % (42.2-75.2); PLATELET COUNT (AUTO) 236 K/uL (140-450); RED BLOOD CELL COUNT(AUTO) 4.53 MIL/uL (4.20-5.40); RED CELL DISTRIBUTION WIDTH 15.4 % (11.6-13.7)
[2022-03-26 08:00] VITALS: BP 145/64
--- NOTE | 2022-03-26 08:00 | NUR ---
REVIEWED AND DISCUSSED PLAN OF CARE WITH STAS FAIRCHILD. PT IN STABLE CONDITION.
[2022-03-26] MEDS: SENNA 8.6 MG TAB PO SCH (08:20)
[2022-03-26] MEDS: APIXABAN 2.5 MG TAB PO SCH ×2 (08:21→20:46)
--- NOTE | 2022-03-26 08:24 | NUR ---
ADMINISTERED SCHEDULED MORNING MEDS. PT COMPLAINED OF PAIN 6/10 ON HER BACK. PRN PAIN MED ADMINISTERED. PT TEACHING ABOUT MEDS GIVEN. PT VERBALIZED UNDERSTANDING. CALL LIGHT WITHIN REACH. SAFETY PRECAUTIONS IN PLACE. WILL CONTINUE TO MONITOR.
[2022-03-26] MEDS ORDERED: FUROSEMIDE 20 MG/2 ML VIAL IVP SCH (09:00)
[2022-03-26 09:21] LABS: FREE T4 (FREE THYROXINE) 1.35 ng/dL (0.76-1.46); THYROID STIMULATING HORMONE 1.09 uIU/mL (0.34-3.74)
[2022-03-26] MEDS: FUROSEMIDE 40 MG/4 ML VIAL IVP SCH (09:34)
--- NOTE | 2022-03-26 09:35 | NUR ---
SCHEDULED IV MEDS ADMINISTERED BY WILLIAM WOMACK. NO ADVERSE REACTION NOTED. WILL CONTINUE TO MONITOR.
[2022-03-26 12:00] VITALS: BP 115/73
--- NOTE | 2022-03-26 12:43 | NUR ---
SCHEDULED MED ADMINISTERED. PT TEACHING DONE. PT VERBALIZED UNDERSTANDING. PT SITTING AT BEDSIDE CHAIR, EATING LUNCH. NO DISTRESS NOTED. NO COMPLAINTS OF PAIN. WILL CONTINUE TO MONITOR.
--- NOTE | 2022-03-26 14:36 | NUR ---
DID ROUNDS. PT IN BED, RESTING. NO DISTRESS NOTED. NO COMPLAINTS OF PAIN. CALL LIGHT WITHIN REACH. SAFETY PRECAUTIONS IN PLACE. WILL CONTINUE TO MONITOR.
[2022-03-26] MEDS: ACETAMINOPHEN 325 MG TAB PO PRN (15:50)
[2022-03-26 16:00] VITALS: BP 120/61
--- NOTE | 2022-03-26 18:03 | NUR ---
PT COMPLAINED OF BACK PAIN 01/28. PRN PAIN MED ADMINISTERED. WILL CONTINUE TO MONITOR.
--- NOTE | 2022-03-26 19:15 | NUR ---
ENDORSED PT TO PRODUCT SAFETY ENGINEER NURSE FOR CONTINUITY OF CARE. ALL NEEDS MET THROUGHOUT SHIFT. PT IS STABLE.
[2022-03-26 20:00] VITALS: BP 115/70
--- NOTE | 2022-03-26 20:00 | NUR ---
RECEIVED BEDSIDE REPORT FROM DAY NURSE FOR CONTINUITY OF CARE. PATIENT A/A/OX3, FORGETFUL AT TIMES, AMBULATES WITH WALKER. PATIENT NOT IN ANY DISTRESS AND DENIES CHEST PAIN, SOB , PALPITATIONS AND DIZZINESS. VSS, AFEBRILE, SATING 99% ON RA. UNCONTROLLED A-FIB ON MANAGER RESIDENTIAL, HR-100. DISCUSSED POC WITH THE PT AND VERBALIZED UNDERSTANDING BUT NEEDS REINFORCEMENT.FALL PRECAUTION IMPLEMENTED. INSTRUCTED TO CALL FOR ASSISTANCE AT ALL TIMES. CALL LIGHT WITHIN REACH. WILL CONTINUE POC AND MONITORING.
[2022-03-26] MEDS: traZODone 50 MG TAB PO SCH (20:45)
[2022-03-26] MEDS: MIRTAZAPINE 15 MG TAB PO SCH (20:47)
--- NOTE | 2022-03-26 22:00 | NUR ---
ALL DUE MEDICATIONS GIVEN ORDERED. PATIENT TOLERATED IT WELL. NO DRUG REACTIONS NOTED. NO COMPLAIN FROM THE PATIENT. WILL CONTINUE OBSERVATION.
[2022-03-27] VITALS: BP 100/53
--- NOTE | 2022-03-27 | NUR ---
PATIENT VITAL SIGNS STABLE, AFEBRILE SATING 99% ON RA. NO COMPLAIN OF PAIN AT THIS TIME. CONTROLLED A-FIB ON DRAPERY SUPERVISOR, HR-78. CALL LIGHT WITHIN REACH. WILL CONTINUE MONITORING.
--- NOTE | 2022-03-27 02:00 | NUR ---
MADE ROUNDS, PATIENT ASLEEP AT THIS TIME. VISIBLE CHEST RISE AND FALL NOTED. PATIENT NOT IN ANY DISTRESS. WILL CONTINUE OBSERVATION.
[2022-03-27 04:00] VITALS: BP 124/66
--- NOTE | 2022-03-27 04:00 | NUR ---
PATIENT VITAL SIGNS STABLE, AFEBRILE SATING 98% ON RA. NO COMPLAIN OF PAIN AT THIS TIME. CONTROLLED A-FIB ON CREATIVE GURU, HR-90. CALL LIGHT WITHIN REACH. WILL CONTINUE MONITORING.
[2022-03-27] MEDS: METOPROLOL 50 MG TAB PO SCH ×2 (04:43→20:37)
--- NOTE | 2022-03-27 06:10 | NUR ---
NO ACUTE EVENT THROUGHOUT THE NIGHT. PATIENT STABLE AND NOT IN ANY DISTRESS. NO COMPLAIN AT THIS TIME. ALL NEEDS ATTENDED. CALL LIGHT WITHIN REACH. WILL ENDORSE THE PT TO THE ONCOMING RN FOR CONTINUITY OF CARE.
--- NOTE | 2022-03-27 07:09 | NUR ---
Patient iv on the rt hand got pulled out accidentally per patient. Applied pressure, no hematoma and bleeding noted. Started a new iv on the left hand gauge 20.
[2022-03-27 07:23] LABS: ANION GAP 8.4 (8-16); CARBON DIOXIDE 32.3 mmol/L (21-32); CHLORIDE 98 mmol/L (98-107); CREATININE 0.9 mg/dL (0.6-1.3); GLUCOSE 88 mg/dL (74-106); POTASSIUM 3.7 mmol/L (3.5-5.1); SODIUM SERUM 135 mmol/L (136-145); UREA NITROGEN, BLOOD 22 mg/dL (7-18)
--- NOTE | 2022-03-27 07:25 | NUR ---
ENDORSED PATIENT TO THE ONCOMING NURSE FOR CONTINUITY OF CARE. PATIENT STABLE. SIGNING OFF.
[2022-03-27 07:35] LABS: BASOPHILS % (AUTO) 0.3 % (0.0-2.0); EOSINOPHILS # (AUTO) 0.1 K/uL (0-0.4); EOSINOPHILS % (AUTO) 1.4 % (0.0-4.0); HEMATOCRIT 36.6 % (36-48); HEMOGLOBIN 12.2 g/dL (12.0-16.0); LYMPHOCYTES # (AUTO) 1.7 K/uL (2.5-16.5); LYMPHOCYTES % (AUTO) 19.4 % (20.5-51.1); MEAN CORPUSCULAR HEMOGLOBIN 28 pg (27-31); MEAN CORPUSCULAR HGB CONC 33 g/dL (33-37); MEAN CORPUSCULAR VOLUME 84.7 fL (80-94); MONOCYTES # (AUTO) 0.7 K/uL (0.8-1.0); MONOCYTES % (AUTO) 7.6 % (1.7-9.3); NEUTROPHILS # (AUTO) 6.3 K/uL (1.8-7.7); NEUTROPHILS % (AUTO) 71.3 % (42.2-75.2); PLATELET COUNT (AUTO) 190 K/uL (140-450); RED BLOOD CELL COUNT(AUTO) 4.32 MIL/uL (4.20-5.40); RED CELL DISTRIBUTION WIDTH 15.5 % (11.6-13.7); WHITE BLOOD COUNT (AUTO) 8.9 K/uL (4.8-10.8)
[2022-03-27 08:00] VITALS: BP 143/66
[2022-03-27] MEDS: SENNA 8.6 MG TAB PO SCH (09:19)
[2022-03-27] MEDS: FUROSEMIDE 40 MG/4 ML VIAL IVP SCH (09:20)
[2022-03-27] MEDS: APIXABAN 2.5 MG TAB PO SCH ×2 (09:23→20:40)
[2022-03-27] MEDS: MORPHINE SULFATE 4 MG/ML SYR IVP PRN ×2 (09:40→18:52)
--- NOTE | 2022-03-27 11:36 | NUR ---
RECEIVE ENDORSEMENT FROM PM SHIFT THAT PATIENT IS REST IN BED; COME FROM [facility] FOR BLE EDEMA W/ A. FIB WITH RVR, HX OF HTN, DEMENTIA, HYPONATREMIA, OSTEOARTHRITIS PER REPORT. PIV AT L. HAND 20G SALINE LOCK. WILL CONTINUE TO MONITOR
[2022-03-27 12:00] VITALS: BP 109/65
[2022-03-27] MEDS ORDERED: DIGOXIN 0.25 MG TAB PO SCH ×2 (13:15→19:00)
[2022-03-27 16:00] VITALS: BP 122/59
[2022-03-27] MEDS: ACETAMINOPHEN 325 MG TAB PO PRN (18:49)
--- NOTE | 2022-03-27 19:46 | NUR ---
ENDORSE PATIENT TO PM SHIFT NURSE THAT PATIENT IS SITTING ON CHAIR; PATIENT COME FROM [facility] FOR BLE EDEMA W/ A. FIB WITH RVR; PIV l. HAND 20G SALINE LOCK
[2022-03-27 20:00] VITALS: BP 152/70
[2022-03-27] MEDS: traZODone 50 MG TAB PO SCH (20:37)
[2022-03-27] MEDS: MIRTAZAPINE 15 MG TAB PO SCH (20:37)
[2022-03-27] MEDS: HYDROcodone/APAP 5/325 MG 1 TAB TAB PO PRN (20:59)
--- NOTE | 2022-03-27 21:20 | NUR ---
PT HR CONVERTED FROM A-FIB TO SR AT 75 BPM, PT ASYMPTOMATIC, AAOX4 WATCHING TV, MONITORED CLOSELY.
[2022-03-28] VITALS: BP 130/79
[2022-03-28] MEDS ORDERED: DIGOXIN 0.25 MG TAB PO SCH (01:00)
[2022-03-28 04:00] VITALS: BP 129/75
--- NOTE | 2022-03-28 05:20 | NUR ---
PT AWAKE, HR IS 79 BPM, SR ON TELE, DUE DIGOXIN 0.25MG PO GIVEN, PT DENIES ANY PAIN, NO SOB NOTED, MONITORED CLOSELY.
[2022-03-28] MEDS: DOCUSATE SODIUM 100 MG GELCAP PO PRN ×3 (06:21→20:54)
[2022-03-28 06:28] LABS: ANION GAP 13.2 (8-16); CARBON DIOXIDE 26.3 mmol/L (21-32); CHLORIDE 97 mmol/L (98-107); CREATININE 0.8 mg/dL (0.6-1.3); GLUCOSE 90 mg/dL (74-106); POTASSIUM 4.5 mmol/L (3.5-5.1); SODIUM SERUM 132 mmol/L (136-145); UREA NITROGEN, BLOOD 22 mg/dL (7-18)
[2022-03-28 07:09] LABS: BASOPHILS % (AUTO) 0.4 % (0.0-2.0); EOSINOPHILS # (AUTO) 0.1 K/uL (0-0.4); EOSINOPHILS % (AUTO) 1.7 % (0.0-4.0); HEMATOCRIT 31.7 % (36-48); HEMOGLOBIN 10.7 g/dL (12.0-16.0); LYMPHOCYTES # (AUTO) 2.5 K/uL (2.5-16.5); LYMPHOCYTES % (AUTO) 30.5 % (20.5-51.1); MEAN CORPUSCULAR HEMOGLOBIN 29 pg (27-31); MEAN CORPUSCULAR HGB CONC 34 g/dL (33-37); MEAN CORPUSCULAR VOLUME 84.4 fL (80-94); MONOCYTES % (AUTO) 11.7 % (1.7-9.3); NEUTROPHILS # (AUTO) 4.6 K/uL (1.8-7.7); NEUTROPHILS % (AUTO) 55.7 % (42.2-75.2); PLATELET COUNT (AUTO) 182 K/uL (140-450); RED BLOOD CELL COUNT(AUTO) 3.75 MIL/uL (4.20-5.40); RED CELL DISTRIBUTION WIDTH 15.8 % (11.6-13.7); WHITE BLOOD COUNT (AUTO) 8.2 K/uL (4.8-10.8)
--- NOTE | 2022-03-28 07:10 | NUR ---
PT AWAKE, NO SIGNS OF DISTRESS, REPORT GIVEN TO WILLIAM MATA FOR CONTINUITY OF CARE.
[2022-03-28 08:00] VITALS: BP 126/78
[2022-03-28] MEDS: HYDROcodone/APAP 5/325 MG 1 TAB TAB PO PRN (08:21)
[2022-03-28] MEDS: SENNA 8.6 MG TAB PO SCH (08:25)
[2022-03-28] MEDS: METOPROLOL 50 MG TAB PO SCH ×2 (08:26→20:50)
[2022-03-28] MEDS: APIXABAN 2.5 MG TAB PO SCH ×2 (08:27→20:49)
[2022-03-28] MEDS ORDERED: FUROSEMIDE 40 MG TAB PO SCH (09:00)
--- NOTE | 2022-03-28 11:20 | NUR ---
DC PLANNING: THE PATIENT ADMITTED FROM [facility] WITH C/O LE EXTREMITY PAIN AND SWELLING. H/O HTN AND DEMENTIA, NOTED TO HAVE AFIB WITH RVR. ADMITTED FOR CHF, GIVEN LASIX AND DILTIAZEM IN ER. CONTINUED ON LASIX IV, LOPRESSOR AND DIGOXIN. ORDERS FOR CONSULTS WITH CARDIOLOGY AND PULMONOLOGY. CARDIOLOGY CONSULT ORDERED JOSE, VENOUS DOPPLER NEGATIVE FOR THROMBUS. DC PLAN IS FOR THE PATIENT TO RETURN TO [facility] WHEN CLINICALLY STABLE, CM WILL FOLLOW. Addendum: 03/28/22 at 1525 by Tiffanie Ochoa CM DC PLANNING: CM SPOKE WITH THE PATIENT AT BEDSIDE AND CONFIRMED THAT SHE HAS NO CELL PHONE. SHE HAS BEEN AT [facility] FOR 1.5-2 YEARS AND IS INDEPENDENT WITH AMBULATION AND ADL'S. SHE USES A FOUR WHEEL WALKER TO AMBULATE AND STATES HE SON LUIS E, DAUGHTER IN LAW VIDA AND DAUGHTER Augusto ARE VERY SUPPORTIVE AND ASSIST WITH ALL NEEDS. THE PATIENT CAN'T REMEMBER WHO HER PMD IS AND STATES SHE'S NOT SICK OFTEN AND DOESN'T SEE HER PMD REGULARLY. THE PATIENT WILL RETURN TO [facility] WHEN CLINICALLY STABLE, CM WILL FOLLOW. Addendum: 03/29/22 at 1046 by Tiffanie Ochoa CM DC PLANNING: PER THE ATTENDING MD PATIENT WILL DC TODAY. [facility] WILL IMPORT/EXPORT AGENT THE PATIENT AT 1300. CM WILL FOLLOW.
[2022-03-28 12:00] VITALS: BP 126/69
[2022-03-28 16:00] VITALS: BP 138/64
[2022-03-28 20:00] VITALS: BP 140/56
--- NOTE | 2022-03-28 20:05 | NUR ---
ENDORSE PATIENT TO PM SHIFT NURSE WHILE PATIENT REST IN BED, STABLE. PIV L. HAND SALINE LOCK.
--- NOTE | 2022-03-28 20:10 | NUR ---
RECEIVED PT FROM AM NURSE FROM AM NURSE FOR CONTINUITY OF CARE.PT IS STABLE
[2022-03-28] MEDS: traZODone 50 MG TAB PO SCH (20:48)
[2022-03-28] MEDS: MIRTAZAPINE 15 MG TAB PO SCH (20:50)
[2022-03-28] MEDS: ACETAMINOPHEN 325 MG TAB PO PRN (22:38)
--- NOTE | 2022-03-28 23:00 | NUR ---
PATIENT ASLEEP,BREATHING EVEN AND UNLABORED,NO DISTRESS NOTED
[2022-03-29] MEDS: MORPHINE SULFATE 4 MG/ML SYR IVP PRN (02:42)
[2022-03-29 04:00] VITALS: BP 142/49
--- NOTE | 2022-03-29 06:00 | NUR ---
PATIENT AWAKE, ABLE TO USE THE COMMODE,ALERT ORIENTED X 4,NO DISTRESS NOTED
--- NOTE | 2022-03-29 07:21 | NUR ---
Received endorsement from upholstery bundler nurse for continuity of care. Patient awake able to responds verbally respiration even and not labored no shortness of breath on room air. IV site on left hand daniel 20 saline lock Patient get up and go to chair and stated I will eat my breakfast sitting. Call light with in easy reach.
[2022-03-29 07:22] LABS: BASOPHILS % (AUTO) 0.4 % (0.0-2.0); EOSINOPHILS # (AUTO) 0.1 K/uL (0-0.4); EOSINOPHILS % (AUTO) 1.9 % (0.0-4.0); HEMATOCRIT 33.3 % (36-48); HEMOGLOBIN 11.2 g/dL (12.0-16.0); LYMPHOCYTES # (AUTO) 1.8 K/uL (2.5-16.5); LYMPHOCYTES % (AUTO) 28.3 % (20.5-51.1); MEAN CORPUSCULAR HEMOGLOBIN 28 pg (27-31); MEAN CORPUSCULAR HGB CONC 34 g/dL (33-37); MEAN CORPUSCULAR VOLUME 84.3 fL (80-94); MONOCYTES # (AUTO) 0.8 K/uL (0.8-1.0); MONOCYTES % (AUTO) 11.9 % (1.7-9.3); NEUTROPHILS # (AUTO) 3.7 K/uL (1.8-7.7); NEUTROPHILS % (AUTO) 57.5 % (42.2-75.2); PLATELET COUNT (AUTO) 169 K/uL (140-450); RED BLOOD CELL COUNT(AUTO) 3.96 MIL/uL (4.20-5.40); RED CELL DISTRIBUTION WIDTH 15.4 % (11.6-13.7); WHITE BLOOD COUNT (AUTO) 6.3 K/uL (4.8-10.8)
[2022-03-29 07:33] LABS: ANION GAP 13.1 (8-16); CARBON DIOXIDE 29.2 mmol/L (21-32); CHLORIDE 99 mmol/L (98-107); CREATININE 0.7 mg/dL (0.6-1.3); GLUCOSE 88 mg/dL (74-106); POTASSIUM 4.3 mmol/L (3.5-5.1); SODIUM SERUM 137 mmol/L (136-145); UREA NITROGEN, BLOOD 16 mg/dL (7-18)
[2022-03-29 08:00] VITALS: BP 169/98
[2022-03-29] MEDS: SENNA 8.6 MG TAB PO SCH (09:06)
[2022-03-29] MEDS: METOPROLOL 50 MG TAB PO SCH (09:07)
[2022-03-29] MEDS: DOCUSATE SODIUM 100 MG GELCAP PO PRN (09:07)
[2022-03-29] MEDS: APIXABAN 2.5 MG TAB PO SCH (09:08)
--- NOTE | 2022-03-29 09:22 | NUR ---
COMPLAINING OF CONSTIPATION GIVEN STOOL SOFTENER AND SENNA BUT STILL COMPLAIN OF CONSTIPATION AND REQUESTING FOR SUPPOSITORY INFORM DR. MINER AND HE ORDER TO SUPPOSITORY ORDER NOTED AND CARRIED OUT PATIENT MADE AWARE.
[2022-03-29] MEDS ORDERED: bisacodyL 10 MG SUPP RC PRN (09:25)
--- NOTE | 2022-03-29 09:40 | NUR ---
SUPPOSITORY GIVEN ENCOURAGE TO INCREASE FLUID TOLERATED.
[2022-03-29] MEDS ORDERED: METO25TA PO ×2 (11:11→13:10)
[2022-03-29] MEDS ORDERED: APIX5TAB PO ×2 (11:12→13:10)
--- NOTE | 2022-03-29 12:00 | NUR ---
PATIENT ATE LUNCH. ON STABLE CONDITION DENIES PAIN OR ANY DISCOMFORT INFORM OF DISCHARGE ORDER FOR HER.
--- NOTE | 2022-03-29 13:00 | NUR ---
PATIENT ALERT ON STABLE CONDITION.DISCHARGE PACKET GIVEN WITH INSTRUCTION VERBALIZED UNDERSTANDING. NAME BAND AND IV REMOVED WITH CATHETER INTACT. ALL BELONGING TAKEN BY PATIENT. WHEELED OUTSIDE TO [facility].
[2022-03-29] MEDS ORDERED: LISI-486 PO (13:10)
--- NOTE | 2022-03-29 14:37 | NUR ---
DC PLANNING SW MET WITH PATIENT AT BEDSIDE FOR THE PURPOSE OF GATHERING COLLATERAL INFORMATION. PATIENT REPORTS RESIDING AT [facility] FOR 1.5-2 YEARS. PATIENT IDENTIFIES LUIS E APPIAH (SON [phone]) EMERGENCY CONTACT AND MDM. PT WAS UNABLE TO RECALL IF AD IN PLACE AND REPORTED SHE BELIEVE SON IS DPOA. PT DECLINED AD PACKET OFFERED BY MANDI. PATIENT WAS UNABLE TO RECALL LAST VISIT WITH PCP. PT REPORTS MEDICATION COMPLIANCE AND REPORTS THAT ASSISTED LIVING ADMINISTERS TO HER DAILY. PT REPORTS BEING AMBULATORY WITH DME ASSISTANCE; FWW AND REQUIRES SOME ASSISTANCE WITH ADLS. DC PLAN IS FOR PT TO RETURN TO [facility] ONCE MEDICALLY CLEARED. SW INQUIRED ON RESOURCES NEEDED AT THIS TIME, PATIENT DECLINED.PATIENT REQUESTED SW CALL TO SON TO NOTIFY HIM OF DC. SW OUTREACHED TO PATIENTS SON, A HIPPA COMPLIANT MESSAGE WAS LEFT NOTIFYING SON THAT PT WAS DC BACK TO [facility]
[2022-03-29] MEDS ORDERED: METOPROLOL 50 MG TAB PO SCH (21:00)
[2022-03-30] MEDS ORDERED: lisinopriL 10 MG TAB PO SCH (09:00)
== END 2022-03-29 12:55 | disposition home or self-care (01) | DRG 291 ==
LOC: MED 19:37 → MTU 22:08 → MIC 03-25 04:39 → MTU 03-25 16:48
PROVIDERS: ADMIT Family Medicine; ATTEND Family Medicine
DX: I11.0 Hypertensive heart disease with heart failure (principal); I50.43 Acute on chronic combined systolic (congestive) and diastolic (congestive) heart failure; I48.20 Chronic atrial fibrillation, unspecified; E87.1 Hypo-osmolality and hyponatremia; I25.10 Atherosclerotic heart disease of native coronary artery without angina pectoris; G89.29 Other chronic pain; F03.90 Unspecified dementia, unspecified severity, without behavioral disturbance, psychotic disturbance, mood disturbance, and anxiety; E78.5 Hyperlipidemia, unspecified; Z79.891 Long term (current) use of opiate analgesic; Z79.1 Long term (current) use of non-steroidal anti-inflammatories (NSAID); Z79.899 Other long term (current) drug therapy
CPT/HCPCS: 36415; 71045; 80048; 80053; 83036; 83735; 83880; 84439; 84443; 84484; 85025; 87081; 93005; 93970; 96374; 96375; 99285; J1940; J2270; J3490; Q0092

== ENCOUNTER 2022-07-08 07:37 | Inpatient (IN) | payer OTHER, MEDICAID ==
[~2022-07-08] VITALS: Ht 152.4 cm; Wt 64.4 kg
[~2022-07-08 07:37] MED LIST changes: -ACET-2619 PO; -ACET-8386 PO; +ACET-8905 PO; +APIX5TAB PO; +ATOR10TA PO; +CALC-1236 PO; -CHOL500040 PO; +LISI-486 PO
[2022-07-08 07:39] VITALS: BP 138/70
--- NOTE | 2022-07-08 07:39 | NUR ---
PATIENT BIBA TO BED 2.
--- NOTE | 2022-07-08 07:40 | NUR ---
CARE ASSUMED, PATIENT ASSESSED.
--- NOTE | 2022-07-08 07:45 | NUR ---
dR MILLARD AT BEDSIDE.
--- NOTE | 2022-07-08 08:00 | NUR ---
PT AMBULATED WITH ASSIST TO BR URINE SPEC OBTAINED AND SENT TO LAB
[2022-07-08] MEDS ORDERED: HYDROcodone/APAP 5/325 MG 1 TAB TAB PO ONE (08:10)
--- NOTE | 2022-07-08 08:15 | NUR ---
PT TO CT VIA STRETCHER
[2022-07-08 09:26] LABS: BASOPHILS % (AUTO) 0.4 % (0.0-2.0); EOSINOPHILS # (AUTO) 0.1 K/uL (0-0.4); EOSINOPHILS % (AUTO) 1.7 % (0.0-4.0); HEMATOCRIT 34.7 % (36-48); HEMOGLOBIN 11.5 g/dL (12.0-16.0); LYMPHOCYTES # (AUTO) 1.2 K/uL (2.5-16.5); LYMPHOCYTES % (AUTO) 24.3 % (20.5-51.1); MEAN CORPUSCULAR HEMOGLOBIN 29 pg (27-31); MEAN CORPUSCULAR HGB CONC 33 g/dL (33-37); MEAN CORPUSCULAR VOLUME 86.1 fL (80-94); MONOCYTES # (AUTO) 0.3 K/uL (0.8-1.0); MONOCYTES % (AUTO) 6.3 % (1.7-9.3); NEUTROPHILS # (AUTO) 3.3 K/uL (1.8-7.7); NEUTROPHILS % (AUTO) 67.3 % (42.2-75.2); PLATELET COUNT (AUTO) 155 K/uL (140-450); RED BLOOD CELL COUNT(AUTO) 4.02 MIL/uL (4.20-5.40); RED CELL DISTRIBUTION WIDTH 14.6 % (11.6-13.7); WHITE BLOOD COUNT (AUTO) 4.9 K/uL (4.8-10.8)
[2022-07-08 09:30] LABS: APPEARANCE,URINE CLEAR (CLEAR); BILIRUBIN,URINE NEGATIVE (NEGATIVE); BLOOD, URINE 1+ (NEGATIVE); COLOR,URINE YELLOW (YELLOW); LEUKOCYTE ESTERASE ,URINE 1+ (NEGATIVE); NITRITE, URINE NEGATIVE (NEGATIVE); PH,URINE 7.5 (5.0-9.0); UGLUCOSE NEGATIVE (NEGATIVE)
--- NOTE | 2022-07-08 09:30 | NUR ---
PT RESTING QUIETLY, RESP EASY, MM PINK, STATES PAIN MED DECREASED PAIN TO 3/10
[2022-07-08 09:33] LABS: ALBUMIN 3.5 g/dL (3.4-5.0); ANION GAP 9.7 (8-16); ASPARTATE AMINOTRANSFERASE 22 U/L (15-37); CARBON DIOXIDE 31.1 mmol/L (21-32); CHLORIDE 104 mmol/L (98-107); CREATININE 0.9 mg/dL (0.6-1.3); GLUCOSE 89 mg/dL (74-106); POTASSIUM 3.8 mmol/L (3.5-5.1); SODIUM SERUM 141 mmol/L (136-145); TOTAL BILIRUBIN 0.5 mg/dL (0.0-1.0); UREA NITROGEN, BLOOD 26 mg/dL (7-18)
[2022-07-08 09:49] LABS: RBC,URINE 0-5 /HPF (0-5)
[2022-07-08 09:50] LABS: WBC,URINE 0-5 /HPF (0-5)
--- NOTE | 2022-07-08 09:50 | NUR ---
WOUND CARE TO L HEAD LAC TOLERATED WELL BY PT
[2022-07-08] MEDS ORDERED: KETOROLAC 30 MG/ML VIAL IVP ONE (10:30)
--- NOTE | 2022-07-08 11:15 | NUR ---
PT RESTING QUIETLY, RESP EASY, MM PINK, NO APPARENT DISTRESS
--- NOTE | 2022-07-08 14:20 | NUR ---
PT SLEEPING, RESP EASY, MM PINK, NO APPARENT DISTRESS
[2022-07-08] MEDS ORDERED: SODIUM PHOS / POTASSIUM PHOS 1 PKT PDR PO PRN (15:00)
[2022-07-08] MEDS ORDERED: DOCUSATE SODIUM 100 MG GELCAP PO PRN (15:00)
[2022-07-08] MEDS ORDERED: POTASSIUM CHLORIDE 10 MEQ TABER PO PRN (15:00)
[2022-07-08] MEDS ORDERED: MECLIZINE 25 MG TAB PO PRN (15:00)
[2022-07-08] MEDS ORDERED: MORPHINE SULFATE 2 MG/ML SYR IVP PRN (15:00)
[2022-07-08] MEDS ORDERED: NACL 0.9% 1,000 ML IV SCH (15:00)
[2022-07-08] MEDS ORDERED: ACETAMINOPHEN 325 MG TAB PO PRN (15:00)
[2022-07-08] MEDS ORDERED: MAGNESIUM OXIDE 400 MG TAB PO PRN (15:00)
[2022-07-08] MEDS ORDERED: ONDANSETRON 4 MG/2 ML VIAL IM/IVP PRN (15:00)
[2022-07-08 16:06] LABS: PHOSPHORUS 4.1 mg/dL (2.5-4.9); THYROID STIMULATING HORMONE 0.66 uIU/mL (0.34-3.74)
--- NOTE | 2022-07-08 17:04 | NUR ---
NO CHANGE IN STATUS, RESP EASYM MM PINK, NO DISTRESS
--- NOTE | 2022-07-08 19:30 | NUR ---
SITTING AT SIDE OF BED. ATE APPROX 50 % OF DINNER. TOLERATED WELL. DENIES PAIN OR DISCOMFORT.
[2022-07-08] MEDS: HYDROcodone/APAP 5/325 MG 1 TAB TAB PO PRN (21:52)
--- NOTE | 2022-07-09 00:10 | NUR ---
[facility] NASAL SWAB TAKEN FOR LAB.
[2022-07-09] MEDS ORDERED: MELATONIN 3 MG TAB PO PRN (01:55)
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
--- NOTE | 2022-07-09 04:34 | NUR ---
BEFORE PT WAS TRANSFERRED FROM ROOM 123A TO 107B, PT DENIED HAVING BELONGINGS HERE IN THE HOSPITAL, EXCEPT FOR HER GLASSES. LATER IN SHIFT PT C/O NOT HAVING HER WALKER. ER STAFF REPORTED THERE WAS NO WALKER BROUGHT IN BY PT TO ED. ALSO, PT WAS GIVEN MELATONIN 10MG ORDERED BY HER DOCTOR. WITHOUT EVER FALLING ASLEEP, PT GOT UP AT AROUND 0300. SHE IS CURRENTLY SITTING IN CHAIR IN ROOM. RN REPORTED PT DOES NOT KNOW WHY SHE IS HERE. 0400 VS: 156/78, 97, 18, 97%, 96.8.
[2022-07-09] MEDS: HYDROcodone/APAP 5/325 MG 1 TAB TAB PO PRN ×2 (05:09→13:17)
--- NOTE | 2022-07-09 07:18 | NUR ---
RECEIVED PT FROM RADIO ELECTRICIAN NURSE JOSE FOR CONTINUITY OF CARE. PT AWAKE SITTING IN CHAIR. A&O4, ABLE TO MAKE NEEDS KNOWN. AMBULATORY. RESPIRATIONS EVEN AND UNLABORED ON RA. NO DISTRESS NOTED. NO COMPLAINTS OF PAIN. 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 IV SITE ON LEFT HAND, NO IVF RUNNING. ATTEMPTED TO CONNECT PT TO IVF BUT PT REFUSED. PT STATED "I'VE BEEN DRINKING WELL, I DON'T SEE THE NEED FOR IVF". RISK AND BENEFITS EXPLAINED, PT STILL REFUSED. WILL INFORM MD. CALL LIGHT WITHIN REACH. SAFETY PRECAUTIONS IN PLACE.
[2022-07-09 07:43] LABS: ANION GAP 11.5 (8-16); CARBON DIOXIDE 27.7 mmol/L (21-32); CHLORIDE 105 mmol/L (98-107); CREATININE 0.7 mg/dL (0.6-1.3); GLUCOSE 87 mg/dL (74-106); POTASSIUM 4.2 mmol/L (3.5-5.1); SODIUM SERUM 140 mmol/L (136-145); UREA NITROGEN, BLOOD 15 mg/dL (7-18)
[2022-07-09 07:49] LABS: BASOPHILS % (AUTO) 0.4 % (0.0-2.0); EOSINOPHILS # (AUTO) 0.1 K/uL (0-0.4); EOSINOPHILS % (AUTO) 1.3 % (0.0-4.0); HEMATOCRIT 33.9 % (36-48); HEMOGLOBIN 11.3 g/dL (12.0-16.0); LYMPHOCYTES # (AUTO) 1.3 K/uL (2.5-16.5); LYMPHOCYTES % (AUTO) 20.5 % (20.5-51.1); MEAN CORPUSCULAR HEMOGLOBIN 29 pg (27-31); MEAN CORPUSCULAR HGB CONC 33 g/dL (33-37); MEAN CORPUSCULAR VOLUME 85.5 fL (80-94); MONOCYTES # (AUTO) 0.4 K/uL (0.8-1.0); MONOCYTES % (AUTO) 7.1 % (1.7-9.3); NEUTROPHILS # (AUTO) 4.4 K/uL (1.8-7.7); NEUTROPHILS % (AUTO) 70.7 % (42.2-75.2); PLATELET COUNT (AUTO) 148 K/uL (140-450); RED BLOOD CELL COUNT(AUTO) 3.97 MIL/uL (4.20-5.40); RED CELL DISTRIBUTION WIDTH 14.3 % (11.6-13.7); WHITE BLOOD COUNT (AUTO) 6.2 K/uL (4.8-10.8)
[2022-07-09 08:00] VITALS: BP 151/68
--- NOTE | 2022-07-09 08:44 | NUR ---
PT CHECKED AND SEEN BY DR. POWERS. RECEIVED ORDER TO STOP IVF. PT DRINKING AND EATING WELL.
[2022-07-09] MEDS ORDERED: PANTOPRAZOLE 40 MG INJ VIAL IVP SCH (09:00)
--- NOTE | 2022-07-09 09:20 | NUR ---
SCHEDULED IV MED ADMINISTERED BY WILLIAM ANAND. PT TOLERATED WELL.
[2022-07-09 12:00] VITALS: BP 158/75
--- NOTE | 2022-07-09 13:20 | NUR ---
PT COMPLAINED OF 6/10 BACK PAIN. PRN PAIN MED ADMINISTERED ORDERED.
--- NOTE | 2022-07-09 14:29 | NUR ---
SPOKE TO EMIL OF [facility]. PER EMIL THEY DON'T PROVIDE TRANSPORTATION ON WEEKEND. THEIR TRANSPORTATION IS ONLY FROM M-F. CONFIRMED WITH EMIL THAT PT'S WALKER IS IN PT'S ROOM AT [facility]. PT WAS INFORMED REGARDING HER WALKER AND DISCHARGE. PT SON AT BEDSIDE.
--- NOTE | 2022-07-09 14:30 | NUR ---
INFORMED CN AND HS REGARDING PT'S TRANSPORTATION NEED TO GO BACK TO [facility].
[2022-07-09 15:39] VITALS: BP 125/66
--- NOTE | 2022-07-09 15:57 | NUR ---
GAVE REPORT TO LUIS OF [facility]. DISCUSSED DC PAPERS WITH THE PT. PT VERBALIZED UNDERSTANDING. PT AWAITING FOR PICK-UP. ESTIMATED PICK-UP TIME 1829, PER SCOTT ZABALA.
[2022-07-09 16:00] VITALS: BP 125/66
--- NOTE | 2022-07-09 17:38 | NUR ---
PT COMPLAINED OF BACK PAIN 10/28. PRN PAIN MED ADMINISTERED MD ORDERED.
--- NOTE | 2022-07-09 18:00 | NUR ---
PT DC TO [facility]. PT PICKED UP BY TRANSPORT STAFF VIA [facility]. REMOVED ID WRIST BAND. REMOVED IV CATHETER INTACT. ALL BELONGINGS TAKEN UPON DC. PT IS STABLE.
[2022-07-09] MEDS ORDERED: APIXABAN 2.5 MG TAB PO SCH (21:00)
[2022-07-09] MEDS ORDERED: METOPROLOL 25 MG TAB PO SCH (21:00)
[2022-07-10] MEDS ORDERED: ATORVASTATIN 20 MG TAB PO SCH (09:00)
[2022-07-10] MEDS ORDERED: lisinopriL 10 MG TAB PO SCH (09:00)
== END 2022-07-09 19:07 | disposition home or self-care (01) | DRG 604 ==
LOC: MED 07:37 → MTU 15:04
PROVIDERS: ADMIT Hospitalist; ATTEND Hospitalist
PROC: 0HQ0XZZ Repair Scalp Skin, External Approach (ICD-10-PCS; principal; 2022-07-08)
DX: S01.01XA Laceration without foreign body of scalp, initial encounter (principal); G93.41 Metabolic encephalopathy; N39.0 Urinary tract infection, site not specified; I50.32 Chronic diastolic (congestive) heart failure; R55 Syncope and collapse; S09.90XA Unspecified injury of head, initial encounter; W18.30XA Fall on same level, unspecified, initial encounter; Z20.822 Contact with and (suspected) exposure to COVID-19; D64.9 Anemia, unspecified; F32.A Depression, unspecified; F41.9 Anxiety disorder, unspecified; E78.5 Hyperlipidemia, unspecified; M85.80 Other specified disorders of bone density and structure, unspecified site; J44.9 Chronic obstructive pulmonary disease, unspecified; K44.9 Diaphragmatic hernia without obstruction or gangrene; I48.0 Paroxysmal atrial fibrillation; I11.0 Hypertensive heart disease with heart failure; Z90.89 Acquired absence of other organs; Y93.89 Activity, other specified; Y92.89 Other specified places as the place of occurrence of the external cause; Y99.8 Other external cause status; Z82.49 Family history of ischemic heart disease and other diseases of the circulatory system
CPT/HCPCS: 12001; 36415; 70450; 71045; 72072; 72100; 72128; 72131; 80048; 80053; 81001; 82140; 83735; 84100; 84443; 84484; 85025; 85610; 85730; 87081; 87086; 90471; 90715; 93005; 93880; 96361; 96374; 97110; 97163-GP; 99285; C9113; J1885; J7030; Q0092

== ENCOUNTER 2022-07-26 14:06 | Emergency (ER) | payer OTHER, MEDICAID ==
[~2022-07-26] VITALS: Ht 167.6 cm; Wt 63.5 kg
[~2022-07-26 14:06] MED LIST changes: +ACET-8386 PO; -ACET-8905 PO
[2022-07-26 14:15] VITALS: BP 140/70
--- NOTE | 2022-07-26 14:17 | NUR ---
Pt ambulated with walker to chair C.
--- NOTE | 2022-07-26 14:47 | NUR ---
Spoke with [facility] staff who states no transportation after 2pm.
--- NOTE | 2022-07-26 14:54 | NUR ---
Called powerhouse mechanic for [employer] transportation back home. Will call back with ETA
--- NOTE | 2022-07-26 15:02 | NUR ---
PATIENT AMBULATED WITH WALKER TO [facility]BER OUTSIDE [facility].
--- NOTE | 2022-07-26 15:02 | NUR ---
Patient discharged with v/s stable. Written and verbal after care instructions given and explained. Patient verbalized understanding. Ambulatory with to [facility] for transportation back home. All questions addressed prior to discharge. Advised to follow up with PMD.
== END 2022-07-26 15:02 | disposition home or self-care (01) ==
LOC: MED 14:06
DX: S01.81XD Laceration without foreign body of other part of head, subsequent encounter (principal); Z48.02 Encounter for removal of sutures; I10 Essential (primary) hypertension; F03.90 Unspecified dementia, unspecified severity, without behavioral disturbance, psychotic disturbance, mood disturbance, and anxiety; E78.5 Hyperlipidemia, unspecified; Z79.899 Other long term (current) drug therapy; Z79.01 Long term (current) use of anticoagulants; Z79.891 Long term (current) use of opiate analgesic; Z79.1 Long term (current) use of non-steroidal anti-inflammatories (NSAID); X58.XXXD Exposure to other specified factors, subsequent encounter
CPT/HCPCS: 99283

== ENCOUNTER 2022-11-12 04:34 | Emergency (ER) | payer OTHER, MEDICAID ==
[~2022-11-12] VITALS: Ht 165.1 cm; Wt 61.2 kg
[~2022-11-12 04:34] MED LIST changes: -ACET-8386 PO; +ACET-8905 PO
[2022-11-12 04:35] VITALS: BP 137/61
--- NOTE | 2022-11-12 04:35 | NUR ---
JENELLE FROM [facility] WITH C/O LEFT HIP AND SHOULDER PAIN X TODAY. WAS GIVEN TYLENOL FOR PAIN WITHOUT RELIEF. DENIES TRAMA. PT WAS AMBULATORY ON SCENE.
[2022-11-12] MEDS ORDERED: ACETAMINOPHEN EXTRA STRENGTH 500 MG TAB PO ONE (05:00)
--- NOTE | 2022-11-12 05:10 | NUR ---
XRAY AT BEDSIDE
--- NOTE | 2022-11-12 06:00 | NUR ---
RESTING COMFORTABLY WITH NO COMPLAINTS AT THIS TIME
[2022-11-12] MEDS ORDERED: LIDOCAINE 5% 1 EA PATCH TP SCH (06:25)
[2022-11-12 07:15] VITALS: BP 137/61
--- NOTE | 2022-11-12 07:15 | NUR ---
Patient discharged with v/s stable. Written and verbal after care instructions given and explained. Patient verbalized understanding. Ambulatory with steady gait. All questions addressed prior to discharge. Advised to follow up with PMD.
== END 2022-11-12 07:15 | disposition home or self-care (01) ==
LOC: MED 04:34
DX: M25.552 Pain in left hip (principal); M25.512 Pain in left shoulder; I10 Essential (primary) hypertension; F03.90 Unspecified dementia, unspecified severity, without behavioral disturbance, psychotic disturbance, mood disturbance, and anxiety; Z79.899 Other long term (current) drug therapy; Z79.01 Long term (current) use of anticoagulants; Z79.891 Long term (current) use of opiate analgesic; Z79.1 Long term (current) use of non-steroidal anti-inflammatories (NSAID)
CPT/HCPCS: 73030; 99283; Q0092

== ENCOUNTER 2023-07-30 16:39 | Emergency (ER) | payer OTHER, MEDICAID ==
[~2023-07-30] VITALS: Ht 165.1 cm; Wt 54.4 kg
[2023-07-30 16:41] VITALS: BP 220/120; PULSE 100; RESP 20; O2SAT 98
[2023-07-30 18:18] LABS: BASOPHILS % (AUTO) 0.4 % (0.0-2.0); EOSINOPHILS # (AUTO) 0.1 K/uL (0-0.4); EOSINOPHILS % (AUTO) 1.5 % (0.0-4.0); HEMATOCRIT 35.2 % (36-48); HEMOGLOBIN 11.3 g/dL (12.0-16.0); LYMPHOCYTES # (AUTO) 1.5 K/uL (2.5-16.5); LYMPHOCYTES % (AUTO) 30.5 % (20.5-51.1); MEAN CORPUSCULAR HEMOGLOBIN 27 pg (27-31); MEAN CORPUSCULAR HGB CONC 32 g/dL (33-37); MEAN CORPUSCULAR VOLUME 85.2 fL (80-94); MONOCYTES # (AUTO) 0.7 K/uL (0.8-1.0); MONOCYTES % (AUTO) 13.8 % (1.7-9.3); NEUTROPHILS # (AUTO) 2.6 K/uL (1.8-7.7); NEUTROPHILS % (AUTO) 53.8 % (42.2-75.2); PLATELET COUNT (AUTO) 115 K/uL (140-450); RED BLOOD CELL COUNT(AUTO) 4.13 MIL/uL (4.20-5.40); RED CELL DISTRIBUTION WIDTH 15.6 % (11.6-13.7); WHITE BLOOD COUNT (AUTO) 4.9 K/uL (4.8-10.8)
[2023-07-30 18:32] LABS: ALANINE AMINOTRANSFERASE 24 U/L (12-78); ALBUMIN 3.4 g/dL (3.4-5.0); ALKALINE PHOSPHATASE 94 U/L (50-136); ANION GAP 13.9 (8-16); ASPARTATE AMINOTRANSFERASE 31 U/L (15-37); CALCIUM 8.7 mg/dL (8.5-10.1); CARBON DIOXIDE 26.6 mmol/L (21-32); CHLORIDE 103 mmol/L (98-107); CREATININE 0.8 mg/dL (0.6-1.3); GLUCOSE 96 mg/dL (74-106); POTASSIUM 4.5 mmol/L (3.5-5.1); SODIUM SERUM 139 mmol/L (136-145); TOTAL BILIRUBIN 0.5 mg/dL (0.0-1.0); TOTAL PROTEIN, SERUM 6.9 g/dL (6.4-8.2); UREA NITROGEN, BLOOD 21 mg/dL (7-18)
[2023-07-30] MEDS ORDERED: FUROSEMIDE 20 MG TAB PO ONE (18:45)
[2023-07-30] MEDS ORDERED: FURO-572 PO (19:07)
[2023-07-30 19:58] VITALS: O2SAT 98
== END 2023-07-30 22:58 | disposition home or self-care (01) ==
LOC: MED 16:39
DX: R60.0 Localized edema (principal); I10 Essential (primary) hypertension; F03.90 Unspecified dementia, unspecified severity, without behavioral disturbance, psychotic disturbance, mood disturbance, and anxiety; Z79.899 Other long term (current) drug therapy; Z79.01 Long term (current) use of anticoagulants; Z79.1 Long term (current) use of non-steroidal anti-inflammatories (NSAID)
CPT/HCPCS: 36415; 71045; 80053; 83880; 84484; 85025; 93005; 93970; 99285; Q0092

== ENCOUNTER 2023-08-05 13:53 | Emergency (ER) | payer OTHER, MEDICAID ==
[~2023-08-05] VITALS: Ht 170.2 cm; Wt 59.0 kg
[~2023-08-05 13:53] MED LIST changes: +FURO-572 PO
[2023-08-05 13:58] VITALS: BP 180/79; PULSE 85; RESP 20; TEMP 97.9; O2SAT 98
[2023-08-05] MEDS ORDERED: ALBUTEROL SULFATE/IPRATROPIU 3 ML SOL IH ONE (14:05)
[2023-08-05 14:34] VITALS: PULSE 86; RESP 16; O2SAT 94
[2023-08-05 15:03] LABS: BASOPHILS % (AUTO) 0.3 % (0.0-2.0); EOSINOPHILS # (AUTO) 0.1 K/uL (0-0.4); EOSINOPHILS % (AUTO) 0.9 % (0.0-4.0); HEMATOCRIT 33.4 % (36-48); LYMPHOCYTES # (AUTO) 1.5 K/uL (2.5-16.5); LYMPHOCYTES % (AUTO) 23.8 % (20.5-51.1); MEAN CORPUSCULAR HEMOGLOBIN 27 pg (27-31); MEAN CORPUSCULAR HGB CONC 33 g/dL (33-37); MEAN CORPUSCULAR VOLUME 81.9 fL (80-94); MONOCYTES # (AUTO) 0.6 K/uL (0.8-1.0); MONOCYTES % (AUTO) 9.6 % (1.7-9.3); NEUTROPHILS # (AUTO) 4.2 K/uL (1.8-7.7); NEUTROPHILS % (AUTO) 65.4 % (42.2-75.2); PLATELET COUNT (AUTO) 117 K/uL (140-450); RED BLOOD CELL COUNT(AUTO) 4.08 MIL/uL (4.20-5.40); WHITE BLOOD COUNT (AUTO) 6.4 K/uL (4.8-10.8)
[2023-08-05 15:49] LABS: ANION GAP 13.9 (8-16); CARBON DIOXIDE 26.6 mmol/L (21-32); CHLORIDE 103 mmol/L (98-107); CREATININE 0.8 mg/dL (0.6-1.3); GLUCOSE 110 mg/dL (74-106); POTASSIUM 3.5 mmol/L (3.5-5.1); SODIUM SERUM 140 mmol/L (136-145); UREA NITROGEN, BLOOD 17 mg/dL (7-18)
[2023-08-05 15:54] LABS: FLU A ANTIGEN negative (NEGATIVE); FLU B ANTIGEN negative (NEGATIVE)
[2023-08-05 15:58] LABS: ALANINE AMINOTRANSFERASE 17 U/L (12-78); ALBUMIN 3.6 g/dL (3.4-5.0); ALKALINE PHOSPHATASE 88 U/L (50-136); ASPARTATE AMINOTRANSFERASE 16 U/L (15-37); TOTAL BILIRUBIN 0.4 mg/dL (0.0-1.0); TOTAL PROTEIN, SERUM 6.8 g/dL (6.4-8.2)
[2023-08-05] MEDS ORDERED: LEVO750T75 PO (16:22)
[2023-08-05] MEDS ORDERED: PROM118S5 PO (16:22)
[2023-08-05 17:06] VITALS: BP 139/79; PULSE 88; RESP 18; TEMP 98; O2SAT 98
== END 2023-08-05 17:09 | disposition home or self-care (01) ==
LOC: MED 13:53
DX: J18.1 Lobar pneumonia, unspecified organism (principal); Z20.822 Contact with and (suspected) exposure to COVID-19; I10 Essential (primary) hypertension; F03.90 Unspecified dementia, unspecified severity, without behavioral disturbance, psychotic disturbance, mood disturbance, and anxiety; Z79.899 Other long term (current) drug therapy
CPT/HCPCS: 36415; 71045; 80053; 84484; 85025; 87426; 87804; 93005; 94640; 99285; Q0092

== ENCOUNTER 2023-08-20 17:41 | Inpatient (IN) | payer OTHER, MEDICAID ==
[~2023-08-20] VITALS: Ht 167.6 cm; Wt 72.6 kg
[~2023-08-20 17:41] MED LIST changes: +LEVO750T75 PO; +PROM118S5 PO
[2023-08-20 17:46] VITALS: BP 120/74; PULSE 97; RESP 20; TEMP 98.7; O2SAT 98
[2023-08-20 18:36] LABS: BASOPHILS % (AUTO) 0.6 % (0.0-2.0); EOSINOPHILS % (AUTO) 0.2 % (0.0-4.0); HEMATOCRIT 32.3 % (36-48); HEMOGLOBIN 10.8 g/dL (12.0-16.0); LYMPHOCYTES # (AUTO) 0.9 K/uL (2.5-16.5); LYMPHOCYTES % (AUTO) 18.5 % (20.5-51.1); MEAN CORPUSCULAR HEMOGLOBIN 27 pg (27-31); MEAN CORPUSCULAR HGB CONC 34 g/dL (33-37); MEAN CORPUSCULAR VOLUME 80.2 fL (80-94); MONOCYTES # (AUTO) 0.8 K/uL (0.8-1.0); MONOCYTES % (AUTO) 15.3 % (1.7-9.3); NEUTROPHILS # (AUTO) 3.3 K/uL (1.8-7.7); NEUTROPHILS % (AUTO) 65.4 % (42.2-75.2); PLATELET COUNT (AUTO) 109 K/uL (140-450); RED BLOOD CELL COUNT(AUTO) 4.03 MIL/uL (4.20-5.40); RED CELL DISTRIBUTION WIDTH 15.2 % (11.6-13.7); WHITE BLOOD COUNT (AUTO) 5.1 K/uL (4.8-10.8)
[2023-08-20 19:04] LABS: CALCIUM 8.6 mg/dL (8.5-10.1); CARBON DIOXIDE 28.7 mmol/L (21-32); CHLORIDE 99 mmol/L (98-107); CREATININE 0.9 mg/dL (0.6-1.3); GLUCOSE 98 mg/dL (74-106); POTASSIUM 3.7 mmol/L (3.5-5.1); SODIUM SERUM 134 mmol/L (136-145); UREA NITROGEN, BLOOD 21 mg/dL (7-18)
[2023-08-20 19:14] LABS: ALANINE AMINOTRANSFERASE 21 U/L (12-78); ALBUMIN 3.4 g/dL (3.4-5.0); ALKALINE PHOSPHATASE 105 U/L (50-136); ASPARTATE AMINOTRANSFERASE 23 U/L (15-37); BILIRUBIN,DIRECT 0.1 mg/dL (0.0-0.3); TOTAL BILIRUBIN 0.4 mg/dL (0.0-1.0); TOTAL PROTEIN, SERUM 7.5 g/dL (6.4-8.2)
[2023-08-20] MEDS ORDERED: FUROSEMIDE 20 MG/2 ML VIAL IVP ONE (20:00)
[2023-08-20 20:57] LABS: FLU A ANTIGEN POSITIVE (NEGATIVE); FLU B ANTIGEN NEGATIVE (NEGATIVE)
[2023-08-20] MEDS ORDERED: ACETAMINOPHEN 325 MG TAB PO PRN (21:00)
[2023-08-20] MEDS: OSELTAMIVIR PHOSPHATE 75 MG CAP PO SCH (21:00)
[2023-08-20] MEDS ORDERED: NACL 0.9% 1,000 ML IV SCH (21:00)
[2023-08-20] MEDS ORDERED: NITROGLYCERIN 0.4 MG TAB SL PRN (21:00)
[2023-08-20] MEDS ORDERED: SIMVASTATIN 20 MG TAB PO SCH (21:00)
[2023-08-20] MEDS ORDERED: ONDANSETRON 4 MG/2 ML VIAL IVP PRN (21:00)
[2023-08-20] MEDS ORDERED: FUROSEMIDE 40 MG/4 ML VIAL IVP SCH (21:00)
[2023-08-20] MEDS ORDERED: OSELTAMIVIR PHOSPHATE 75 MG CAP PO ONE (21:00)
[2023-08-20] MEDS ORDERED: PROMETHAZINE DM 6.25/15MG-5ML ORASYR PO PRN (21:10)
[2023-08-20 22:40] VITALS: PULSE 96; RESP 20; O2SAT 96
[2023-08-20 23:38] VITALS: PULSE 91
[2023-08-21] VITALS (8 sets, daily range): BP systolic 153–162; BP diastolic 45–73; PULSE 60–106; RESP 18–19; TEMP 97.9–98.4; O2SAT 92–99
[2023-08-21] MEDS ORDERED: MELATONIN 3 MG TAB PO PRN (00:55)
[2023-08-21] MEDS ORDERED: SENNA 8.6 MG TAB PO SCH (09:00)
[2023-08-21] MEDS ORDERED: lisinopriL 10 MG TAB PO SCH (09:00)
[2023-08-21] MEDS ORDERED: APIXABAN 2.5 MG TAB PO SCH (09:00)
[2023-08-21] MEDS ORDERED: ENOXAPARIN 40 MG/0.4 ML SYR SUBQ SCH (09:00)
[2023-08-21] MEDS ORDERED: FUROSEMIDE 20 MG/2 ML VIAL IVP SCH (09:00)
[2023-08-21] MEDS ORDERED: METOPROLOL 25 MG TAB PO SCH (09:00)
[2023-08-21] MEDS: OSELTAMIVIR PHOSPHATE 75 MG CAP PO SCH (09:13)
[2023-08-21] MEDS ORDERED: TAM75 PO (17:01)
[2023-08-21] MEDS ORDERED: traZODone 50 MG TAB PO SCH (21:00)
[2023-08-21] MEDS ORDERED: MIRTAZAPINE 15 MG TAB PO SCH (21:00)
== END 2023-08-21 17:55 | DRG 205 ==
LOC: MED 17:41 → MMU 21:00 → MTU 22:18
PROVIDERS: ADMIT Family Medicine; ATTEND Family Medicine
DX: M94.0 Chondrocostal junction syndrome [Tietze] (principal); I50.41 Acute combined systolic (congestive) and diastolic (congestive) heart failure; I11.0 Hypertensive heart disease with heart failure; J10.1 Influenza due to other identified influenza virus with other respiratory manifestations; E78.5 Hyperlipidemia, unspecified; F41.9 Anxiety disorder, unspecified; F32.A Depression, unspecified; Z79.899 Other long term (current) drug therapy
CPT/HCPCS: 36415; 71045; 80048; 80076; 83880; 84484; 85025; 87081; 93005; 96374; 99285; J1650; J1940; Q0092

== ENCOUNTER 2023-09-13 18:41 | Inpatient (IN) | payer OTHER, MEDICAID ==
[~2023-09-13] VITALS: Ht 167.6 cm; Wt 66.7 kg
[~2023-09-13 18:41] MED LIST changes: -LEVO750T75 PO; +TAM75 PO
[2023-09-13 18:57] VITALS: BP 145/65; PULSE 60; RESP 18; TEMP 97.2; O2SAT 97
[2023-09-13 19:40] VITALS: O2SAT 95
[2023-09-13 19:58] LABS: BASOPHILS % (AUTO) 0.5 % (0.0-2.0); EOSINOPHILS # (AUTO) 0.1 K/uL (0-0.4); HEMATOCRIT 33.9 % (36-48); HEMOGLOBIN 11.4 g/dL (12.0-16.0); LYMPHOCYTES # (AUTO) 1.6 K/uL (2.5-16.5); LYMPHOCYTES % (AUTO) 21.3 % (20.5-51.1); MEAN CORPUSCULAR HEMOGLOBIN 27 pg (27-31); MEAN CORPUSCULAR HGB CONC 34 g/dL (33-37); MEAN CORPUSCULAR VOLUME 80.1 fL (80-94); MONOCYTES # (AUTO) 0.6 K/uL (0.8-1.0); MONOCYTES % (AUTO) 8.7 % (1.7-9.3); NEUTROPHILS % (AUTO) 68.5 % (42.2-75.2); PLATELET COUNT (AUTO) 158 K/uL (140-450); RED BLOOD CELL COUNT(AUTO) 4.23 MIL/uL (4.20-5.40); WHITE BLOOD COUNT (AUTO) 7.3 K/uL (4.8-10.8)
[2023-09-13 19:58] LABS: APPEARANCE,URINE CLEAR (CLEAR); BILIRUBIN,URINE NEGATIVE (NEGATIVE); BLOOD, URINE 1+ (NEGATIVE); COLOR,URINE YELLOW (YELLOW); LEUKOCYTE ESTERASE ,URINE TRACE (NEGATIVE); NITRITE, URINE NEGATIVE (NEGATIVE); PROTEIN,URINE NEGATIVE (NEGATIVE); UGLUCOSE NEGATIVE (NEGATIVE); UROBILINOGEN,URINE 0.2 EU/dL (0.2 - 1)
[2023-09-13 20:05] LABS: ANION GAP 11.8 (8-16); CALCIUM 8.6 mg/dL (8.5-10.1); CARBON DIOXIDE 26.8 mmol/L (21-32); CHLORIDE 102 mmol/L (98-107); CREATININE 0.8 mg/dL (0.6-1.3); GLUCOSE 92 mg/dL (74-106); POTASSIUM 3.6 mmol/L (3.5-5.1); SODIUM SERUM 137 mmol/L (136-145); UREA NITROGEN, BLOOD 20 mg/dL (7-18)
[2023-09-13 20:13] LABS: WBC,URINE 0-5 /HPF (0-5)
[2023-09-13 20:14] LABS: BACTERIA,URINE FEW /HPF (None Seen); MUCUS,URINE 1+ /LPF (None Seen); SQUAMOUS EPITHELIAL CELL,UR 4-10 (MOD) /LPF (0-3 (FEW)); TRICHOMONAS,URINE None Seen /HPF (None Seen); YEAST,URINE None Seen /HPF (None Seen)
[2023-09-13 20:20] LABS: ALANINE AMINOTRANSFERASE 19 U/L (12-78); ALBUMIN 3.5 g/dL (3.4-5.0); ALKALINE PHOSPHATASE 124 U/L (50-136); ASPARTATE AMINOTRANSFERASE 19 U/L (15-37); LIPASE 48 U/L (16-77); TOTAL BILIRUBIN 0.4 mg/dL (0.0-1.0); TOTAL PROTEIN, SERUM 7.7 g/dL (6.4-8.2)
[2023-09-13 20:29] LABS: BILIRUBIN,DIRECT 0.1 mg/dL (0.0-0.3)
[2023-09-13] MEDS ORDERED: FAMOTIDINE 20 MG TAB PO ONE (20:50)
[2023-09-13] MEDS ORDERED: OLANZapine 5 MG ODT SL ONE (21:25)
[2023-09-13] MEDS ORDERED: ONDANSETRON 4 MG/2 ML VIAL IVP PRN (22:25)
[2023-09-13] MEDS ORDERED: LORazepam 1 MG TAB PO PRN (22:25)
[2023-09-13] MEDS ORDERED: ZOLPIDEM 5 MG TAB PO PRN (22:25)
[2023-09-14] VITALS (10 sets, daily range): BP systolic 126–216; BP diastolic 56–77; PULSE 52–85; RESP 18–20; TEMP 97–98; O2SAT 98–100
[2023-09-14 00:03] LABS: FLU A ANTIGEN negative (NEGATIVE); FLU B ANTIGEN NEGATIVE (NEGATIVE)
[2023-09-14 00:10] LABS: CHOL/HDL RATIO 1.8 (1-4.5)
[2023-09-14] MEDS: hydrALAZINE 20 MG/ML VIAL IVP PRN ×2 (00:48→16:33)
[2023-09-14] MEDS: MORPHINE SULFATE 2 MG/ML SYR IVP PRN ×3 (00:50→17:21)
[2023-09-14] MEDS: NITROGLYCERIN 0.4 MG TAB SL PRN ×3 (01:33→02:13)
[2023-09-14 04:51] LABS: BASOPHILS % (AUTO) 0.5 % (0.0-2.0); EOSINOPHILS % (AUTO) 0.9 % (0.0-4.0); HEMATOCRIT 33.4 % (36-48); HEMOGLOBIN 11.2 g/dL (12.0-16.0); LYMPHOCYTES # (AUTO) 1.3 K/uL (2.5-16.5); LYMPHOCYTES % (AUTO) 22.3 % (20.5-51.1); MEAN CORPUSCULAR HEMOGLOBIN 27 pg (27-31); MEAN CORPUSCULAR HGB CONC 33 g/dL (33-37); MEAN CORPUSCULAR VOLUME 81.4 fL (80-94); MONOCYTES # (AUTO) 0.5 K/uL (0.8-1.0); MONOCYTES % (AUTO) 8.8 % (1.7-9.3); NEUTROPHILS # (AUTO) 3.8 K/uL (1.8-7.7); NEUTROPHILS % (AUTO) 67.5 % (42.2-75.2); PLATELET COUNT (AUTO) 139 K/uL (140-450); RED CELL DISTRIBUTION WIDTH 15.6 % (11.6-13.7); WHITE BLOOD COUNT (AUTO) 5.6 K/uL (4.8-10.8)
[2023-09-14 07:33] LABS: ALANINE AMINOTRANSFERASE 25 U/L (12-78); ALBUMIN 3.5 g/dL (3.4-5.0); ALKALINE PHOSPHATASE 100 U/L (50-136); ANION GAP 13.8 (8-16); ASPARTATE AMINOTRANSFERASE 23 U/L (15-37); CALCIUM 9.1 mg/dL (8.5-10.1); CARBON DIOXIDE 27.6 mmol/L (21-32); CHLORIDE 103 mmol/L (98-107); CREATININE 0.9 mg/dL (0.6-1.3); GLUCOSE 105 mg/dL (74-106); POTASSIUM 3.4 mmol/L (3.5-5.1); SODIUM SERUM 141 mmol/L (136-145); TOTAL BILIRUBIN 0.4 mg/dL (0.0-1.0); TOTAL PROTEIN, SERUM 6.8 g/dL (6.4-8.2); UREA NITROGEN, BLOOD 18 mg/dL (7-18)
[2023-09-14] MEDS: DOCUSATE SODIUM 100 MG GELCAP PO SCH (08:16)
[2023-09-14] MEDS: ASPIRIN 81 MG TAB.CHEW PO SCH (08:16)
[2023-09-14] MEDS: lisinopriL 10 MG TAB PO SCH (08:17)
[2023-09-14] MEDS ORDERED: carvediloL 3.125 MG TAB PO SCH (09:00)
[2023-09-14] MEDS: LIDOCAINE 5% 1 EA PATCH TP SCH (13:57)
[2023-09-14] MEDS ORDERED: POTASSIUM CHLORIDE 10 MEQ TABER PO SCH (15:30)
[2023-09-14] MEDS: APIXABAN 2.5 MG TAB PO SCH ×2 (21:00→21:18)
[2023-09-14] MEDS ORDERED: traZODone 50 MG TAB PO SCH (21:00)
[2023-09-14] MEDS ORDERED: MIRTAZAPINE 15 MG TAB PO SCH (21:00)
[2023-09-14] MEDS ORDERED: SIMVASTATIN 20 MG TAB PO SCH (21:00)
[2023-09-14] MEDS: METOPROLOL 25 MG TAB PO SCH (21:16)
[2023-09-15] VITALS (9 sets, daily range): BP systolic 155–180; BP diastolic 68–90; PULSE 70–95; RESP 18; TEMP 97.3–98.5; O2SAT 97–98
[2023-09-15] MEDS: hydrALAZINE 20 MG/ML VIAL IVP PRN (04:01)
[2023-09-15] MEDS: MORPHINE SULFATE 2 MG/ML SYR IVP PRN (06:23)
[2023-09-15 06:42] LABS: BASOPHILS % (AUTO) 0.5 % (0.0-2.0); EOSINOPHILS # (AUTO) 0.1 K/uL (0-0.4); HEMATOCRIT 37.5 % (36-48); HEMOGLOBIN 12.4 g/dL (12.0-16.0); LYMPHOCYTES # (AUTO) 1.5 K/uL (2.5-16.5); LYMPHOCYTES % (AUTO) 19.5 % (20.5-51.1); MEAN CORPUSCULAR HEMOGLOBIN 27 pg (27-31); MEAN CORPUSCULAR HGB CONC 33 g/dL (33-37); MEAN CORPUSCULAR VOLUME 80.2 fL (80-94); MONOCYTES # (AUTO) 0.8 K/uL (0.8-1.0); MONOCYTES % (AUTO) 10.4 % (1.7-9.3); NEUTROPHILS # (AUTO) 5.1 K/uL (1.8-7.7); NEUTROPHILS % (AUTO) 68.6 % (42.2-75.2); PLATELET COUNT (AUTO) 166 K/uL (140-450); RED BLOOD CELL COUNT(AUTO) 4.67 MIL/uL (4.20-5.40); RED CELL DISTRIBUTION WIDTH 16.2 % (11.6-13.7); WHITE BLOOD COUNT (AUTO) 7.5 K/uL (4.8-10.8)
[2023-09-15 07:15] LABS: ALANINE AMINOTRANSFERASE 17 U/L (12-78); ALBUMIN 3.6 g/dL (3.4-5.0); ALKALINE PHOSPHATASE 113 U/L (50-136); ANION GAP 11.6 (8-16); ASPARTATE AMINOTRANSFERASE 16 U/L (15-37); CALCIUM 9.2 mg/dL (8.5-10.1); CARBON DIOXIDE 26.3 mmol/L (21-32); CHLORIDE 100 mmol/L (98-107); CREATININE 0.6 mg/dL (0.6-1.3); GLUCOSE 107 mg/dL (74-106); POTASSIUM 3.9 mmol/L (3.5-5.1); SODIUM SERUM 134 mmol/L (136-145); TOTAL BILIRUBIN 0.6 mg/dL (0.0-1.0); UREA NITROGEN, BLOOD 16 mg/dL (7-18)
[2023-09-15] MEDS: DOCUSATE SODIUM 100 MG GELCAP PO SCH (08:29)
[2023-09-15] MEDS: ASPIRIN 81 MG TAB.CHEW PO SCH (08:29)
[2023-09-15] MEDS: METOPROLOL 25 MG TAB PO SCH (08:30)
[2023-09-15] MEDS: LIDOCAINE 5% 1 EA PATCH TP SCH (08:30)
[2023-09-15] MEDS: lisinopriL 10 MG TAB PO SCH (08:30)
[2023-09-15] MEDS: APIXABAN 2.5 MG TAB PO SCH (08:31)
[2023-09-15] MEDS ORDERED: PANTOPRAZOLE 40 MG INJ VIAL IVP SCH (09:00)
== END 2023-09-15 11:20 | disposition home or self-care (01) | DRG 305 ==
LOC: MED 18:41 → UNDOADMIN 21:35 → MTU 21:35
PROVIDERS: ADMIT Student in an Organized Health Care Education/Training Program; ATTEND Student in an Organized Health Care Education/Training Program
DX: I16.9 Hypertensive crisis, unspecified (principal); I24.9 Acute ischemic heart disease, unspecified; E87.6 Hypokalemia; Z20.822 Contact with and (suspected) exposure to COVID-19; K44.9 Diaphragmatic hernia without obstruction or gangrene; I48.91 Unspecified atrial fibrillation; I11.0 Hypertensive heart disease with heart failure; E78.5 Hyperlipidemia, unspecified; I50.9 Heart failure, unspecified
CPT/HCPCS: 36415; 71045; 80048; 80053; 80076; 81001; 83690; 83721; 84484; 85025; 87081; 93005; 97112; 97116; 97530; 99285; C9113; J0360; J2270

== ENCOUNTER 2023-10-29 17:26 | Emergency (ER) | payer OTHER, MEDICAID ==
[~2023-10-29] VITALS: Ht 165.1 cm; Wt 68.0 kg
[~2023-10-29 17:26] MED LIST changes: -TAM75 PO
[2023-10-29 17:30] VITALS: BP 156/76; PULSE 91; TEMP 97.6; O2SAT 95
[2023-10-29 17:49] VITALS: O2SAT 95
[2023-10-29] MEDS: MORPHINE SULFATE 4 MG/ML SYR IM ONE (18:05)
[2023-10-29] MEDS ORDERED: CIPR500T4 PO (18:45)
== END 2023-10-29 19:36 | disposition home or self-care (01) ==
LOC: MED 17:26
DX: N39.0 Urinary tract infection, site not specified (principal); I11.9 Hypertensive heart disease without heart failure; Z79.899 Other long term (current) drug therapy
CPT/HCPCS: 81002; 96372; 99283; J2270